=== PATIENT | male | born 1960 | race Caucasian/White ===

== ENCOUNTER 2016-04-16 07:25 | Inpatient (IN) ==
[2016-04-12 13:57] LABS: Basophils # (Auto) 0 K/mcL (0.0-0.3); Basophils % (Auto) 0.9 % (0.0-2.0); Eosinophils # (Auto) 0.2 K/mcL (0.0-0.7); Eosinophils % (Auto) 3.7 % (0.0-7.0); Granulocytes % (Auto) 59.2 % (38.0-78.0); Lymphocytes # (Auto) 1.6 K/mcL (1.5-4.8); Lymphocytes % (Auto) 29.8 % (15.5-49.0); Mean Cell Volume 94.3 fL (80.0-100.0); Mean Corpuscular HGB Conc 32.9 g/dL (31.0-36.0); Monocytes # (Auto) 0.3 K/mcL (0.1-0.9); Monocytes % (Auto) 6.4 % (1.0-9.0); Platelet Count 211 K/mcL (140-440); RBC 4.39 M/mcL (4.50-5.90); Red Cell Distribution Width 14.7 % (11.5-14.5)
[2016-04-12 14:07] LABS: Blood Urea Nitrogen 19 mg/dl (6-20)
[2016-04-12 15:47] LABS: Appearance,Urine CLEAR; Bilirubin,Urine NEG (NEG); Color,Urine YELLOW; Glucose,Urine (UA) NEGATIVE (NEG); Leukocyte Esterase,Urine NEG /uL (NEG); Nitrate,Urine NEG (NEG); Protein,Urine NEG (NEG); Urine Blood NEG mg/dL (<0.03); Urobilinogen,Urine NEG (NEG)
[~2016-04-16 07:25] MED LIST: ACETAMINOPHEN 500 MG TABLET PO SCH; CELECOXIB 200 MG CAPSULE PO SCH; PREGABALIN 150 MG CAPSULE PO SCH; ceFAZolin 1 GM VIAL IV SCH; oxyCODONE 10 MG TAB.ER.12H PO SCH
[2016-04-16] MEDS ORDERED: GLYCOPYRROLATE 0.2 MG/ML VIAL IV ONE (10:20)
[2016-04-16] MEDS ORDERED: ePHEDrine 50 MG/ML AMPUL IV ONE (10:20)
[2016-04-16] MEDS ORDERED: MIDAZOLAM 5 MG/5 ML VIAL IV ONE (10:20)
[2016-04-16] MEDS ORDERED: SUCCINYLCHOLINE 20 MG/ML ML IV ONE (10:20)
[2016-04-16] MEDS ORDERED: LIDOCAINE HCL/PF 100 MG/5 ML SYRINGE IV ONE (10:20)
[2016-04-16] MEDS ORDERED: DEXAMETHASONE 10 MG/ML VIAL IV ONE (10:20)
[2016-04-16] MEDS ORDERED: ROCURONIUM 10 MG/ML ML IV ONE (10:20)
[2016-04-16] MEDS ORDERED: PROPOFOL 200 MG/20 ML VIAL IV ONE (10:20)
[2016-04-16] MEDS ORDERED: PHENYLEPHRINE 10 MG/ML VIAL IV ONE (10:20)
[2016-04-16] MEDS ORDERED: TRANEXAMIC ACID 1,000 MG/10 ML VIAL IV ONE (10:20)
[2016-04-16] MEDS ORDERED: GENTAMICIN SULFATE 800 MG/20 ML VIAL IR ONE (10:46)
[2016-04-16] MEDS ORDERED: FLUMAZENIL 0.1 MG/ML ML IV PRN (11:48)
[2016-04-16] MEDS ORDERED: NALOXONE HCL 0.4 MG/ML VIAL IV PRN (11:48)
[2016-04-16] MEDS ORDERED: MEPERIDINE 25 MG/ML SYRINGE IV PRN (11:48)
[2016-04-16] MEDS ORDERED: diphenhydrAMINE 50 MG/ML VIAL IV PRN (11:48)
[2016-04-16] MEDS ORDERED: BENZOCAINE/MENTHOL 1 LOZENGE PO PRN ×2 (11:48→12:32)
[2016-04-16] MEDS ORDERED: IPRATROPIUM/ALBUTEROL 3 ML AMPUL.NEB NEB PRN (11:48)
[2016-04-16] MEDS ORDERED: HYDROmorphone 2 MG/ML SYRINGE IV PRN ×2 (11:48→13:50)
[2016-04-16] MEDS ORDERED: ePHEDrine 50 MG/ML AMPUL IV PRN (11:48)
[2016-04-16] MEDS ORDERED: METHOCARBAMOL 1,000 MG/10 ML VIAL IV PRN (11:48)
[2016-04-16] MEDS ORDERED: LACTATED RINGERS 250 ML IV PRN (11:48)
[2016-04-16] MEDS ORDERED: LACTATED RINGERS 1,000 ML IV SCH (12:00)
[2016-04-16] MEDS ORDERED: FLEETS ADULT ENEMA PR PRN (12:32)
[2016-04-16] MEDS ORDERED: ONDANSETRON 4 MG/2 ML VIAL IV PRN (12:32)
[2016-04-16] MEDS ORDERED: TRANEXAMIC ACID 1,000 MG/10 ML VIAL IV SCH (12:32)
[2016-04-16] MEDS ORDERED: POLYETHYLENE GLYCOL 3350 17 GM PACKET PO PRN (12:32)
[2016-04-16] MEDS ORDERED: BISACODYL 10 MG SUPP.RECT PR PRN (12:32)
[2016-04-16] MEDS ORDERED: MAGNESIUM HYDROXIDE 30 ML ORAL.SUSP PO PRN (12:32)
--- NOTE | 2016-04-16 12:32 | Brief Operative Note ---
Date of procedure: 04/16/16 Pre-op diagnosis: Left hip loose cup Post-op diagnosis: same Procedure: Left hip revision of cup Grafts/Implants: Yes Anesthesia: GETA Findings: loose cup with minimal ingrowth top 50 percent Complications: none Complications Description: 04/16/16 12:31 none Surgeon: Maynor Sharma Pres[employer] Teacher Assistant: Dhiraj Rogers Estimated blood loss (cc): 100 Specimens Removed/Pathology: none sent Condition: stable Disposition: PACU
[2016-04-16] MEDS: fentaNYL 100 MCG/2 ML VIAL IV PRN ×4 (13:20→13:35)
[2016-04-16] MEDS ORDERED: ACETAMINOPHEN 325 MG TABLET PO PRN (13:50)
[2016-04-16] MEDS: 0.45 % SODIUM CHLORIDE 1,000 ML IV SCH (14:12)
[2016-04-16] MEDS: 0.9 % SODIUM CHLORIDE 10 ML SYRINGE IV SCH ×2 (14:12→22:17)
[2016-04-16] MEDS: CYCLOBENZAPRINE 10 MG TABLET PO SCH ×2 (14:15→21:01)
[2016-04-16] MEDS: KETOROLAC 15 MG/ML VIAL IV PRN ×2 (14:30→23:32)
--- NOTE | 2016-04-16 14:33 | XRay Report ---
HISTORY: Reason for Exam:Post-Op Total Hip FINDINGS: The patient has bilateral total hip prosthesis. The left hip prosthesis has been revised since the recent x-ray done on 04/04/15. The prosthetic femoral head has been replaced. The new prosthetic femoral head is well centered within the acetabular cup. There is no evidence of fracture. There is no reabsorption of bone around the hardware. IMPRESSION: Well-positioned left hip prosthesis which has been revised. Interpreted and Authenticated by: Mian Austin 04/16/16
[2016-04-16] MEDS: NICOTINE 21 MG PATCH TOPICAL SCH (16:00)
[2016-04-16] MEDS: HYDROcodone/APAP 10/325MG TABLET PO PRN ×2 (16:31→21:02)
[2016-04-16] MEDS: ceFAZolin 1 GM VIAL IV SCH (18:53)
[2016-04-16] MEDS: clonazePAM 0.5 MG TABLET PO PRN (19:57)
[2016-04-16] MEDS ORDERED: SENNOSIDES 1 TABLET PO SCH (21:00)
[2016-04-16] MEDS: QUEtiapine 100 MG TABLET PO PRN ×2 (21:00→23:33)
[2016-04-16] MEDS ORDERED: TEMAZEPAM 15 MG CAPSULE PO PRN (21:00)
[2016-04-16] MEDS ORDERED: PRAZOSIN 1 MG CAPSULE PO SCH (21:00)
[2016-04-16] MEDS: ASPIRIN 325 MG ENTERIC COATED TABLET PO SCH (21:01)
[2016-04-16] MEDS: DOCUSATE SODIUM 100 MG CAPSULE PO SCH (21:01)
[2016-04-16] MEDS: oxyCODONE 10 MG TAB.ER.12H PO SCH (21:01)
[2016-04-17] MEDS: HYDROcodone/APAP 10/325MG TABLET PO PRN ×2 (01:01→05:18)
[2016-04-17] MEDS: 0.45 % SODIUM CHLORIDE 1,000 ML IV SCH ×3 (01:02→11:43)
[2016-04-17] MEDS: ceFAZolin 1 GM VIAL IV SCH (02:57)
[2016-04-17] MEDS: 0.9 % SODIUM CHLORIDE 10 ML SYRINGE IV SCH (06:20)
--- NOTE | 2016-04-17 07:50 | Orthopedic Progress Note ---
Subjective Patient information: Note initiated : 04/17/16 at 7:49 am Service Date, if different from initiated Date: [] Patient: Bunny Doran 55 y/o M admitted on 04/16/16 for Left Total Hip Arthroplasty Revision - Femoral and. Chief Complaint: [Pt is stable this morning on post operative day 1 without any significant concerns or complaints. Patients vital signs have remained stable. Patients dressing is dry and exhibits a grossly intact neurovascular and neuromotor exam. Patients 10 point ROS is otherwise negative. ] Objective Vital signs: Vital Signs Temp Pulse Resp BP Pulse Ox 04/17/16 06:00 97 04/17/16 04:00 97.3 F L 71 14 103/65 99 04/17/16 01:44 97 04/16/16 23:11 97.9 F 107 H 14 101/62 99 04/16/16 23:10 99 04/16/16 22:00 99 04/16/16 20:00 98.2 F 103 H 14 112/75 99 04/16/16 18:00 98 04/16/16 16:35 97.7 F 91 H 16 119/76 100 04/16/16 16:00 100 04/16/16 15:35 88 16 127/78 98 04/16/16 15:05 92 H 16 129/80 89 L 04/16/16 14:35 77 16 123/88 98 04/16/16 14:33 100 04/16/16 14:20 64 14 130/83 98 04/16/16 14:05 76 14 122/82 100 04/16/16 13:50 97.3 F L 76 14 131/87 100 04/16/16 13:37 64 16 133/89 100 04/16/16 13:15 62 16 133/89 100 04/16/16 13:00 72 16 136/79 100 04/16/16 12:42 97.1 F L 66 12 114/76 100 Intake and Output 04/16/16 04/17/16 04/17/16 21:59 05:59 13:59 Intake Total 780 / 780 2100 / 2100 Output Total 350 / 350 250 / 250 Balance 780 / 780 1750 / 1750 -250 / -250 Intake: IV 1000 / 1000 Sodium Chloride 0.45% 1, 1000 / 1000 000 ml @ 100 mls/hr IV . Q10H [facility] Rx#:[id number] Oral 780 / 780 1100 / 1100 Output: Void Amount 350 / 350 250 / 250 Straight Cath #2 350 / 350 Other: Meal Dinner Percent of Meal Consumed 100% Feeding Ability Independent Weight 192 lb Intake & Output: Intake & Output 04/16/16 04/17/16 04/17/16 21:59 05:59 13:59 Intake Total 780 / 780 2100 / 2100 Output Total 350 / 350 250 / 250 Balance 780 / 780 1750 / 1750 -250 / -250 Weight 192 lb Intake: IV 1000 / 1000 Sodium Chloride 0.45% 1, 1000 / 1000 000 ml @ 100 mls/hr IV . Q10H [facility] Rx#:[id number] Oral 780 / 780 1100 / 1100 Output: Void Amount 350 / 350 250 / 250 Straight Cath #2 350 / 350 Other: Meal Dinner Percent of Meal Consumed 100% Feeding Ability Independent Incision: Yes healing Incision clean and dry: Yes Dressing: Yes clean, Yes dry Neurological exam IM: Yes motor sensory intact, Yes neurovascular intact Extremities exam IM: Yes Foot pink and warm, Yes neurovascular intact - Labs CBC & BMP: 04/17/16 05:00 04/12/16 11:24 Labs: Orthopedic Labs 04/16/16 07:45 PT 12.9 INR 1.0 04/17/16 04/12/16 05:00 11:25 Hgb 13.6 Hct 29.5 L 41.4 Assessment and Plan (1) Hx of total hip arthroplasty Patient has been educated regarding wound care and dressings, follow up recommendations, and medication use. We will f/u with the patient within 2-3 weeks for wound check. Status: Acute
--- NOTE | 2016-04-17 07:52 | Discharge Summary ---
Ortho Discharge - [facility] - Patient Instructions Diet: Regular Diet Activity: activity as tolerated, weight bearing as tolerated Total Hip Protocol: Follow activity instructions as provided by Physical Therapy. Dressing Care: May shower in 2 days, Aquacel Ag - leave on for 5 days Additional Instructions: [facility] [phone] APPOINTMENT: - Problem Maintenance (1) Hx of total hip arthroplasty Status: Acute - Follow Up Plan Follow Up Appointments: Maynor Sharma MD [Physician] - 05/01/16 1:00 pm Disposition: Home, Self-Care Prognosis: Good Rehab Potential: Good I certify that the patient requires SNF services: No Overall status at discharge: patient is progressing back to baseline - Orders For Discharge Prescriptions: Aspirin [Ecotrin] 325 mg PO BID #60 tab.ec Docusate Sodium [Colace] 100 mg PO BID #60 capsule HYDROcodone/APAP 10/325MG [[place] 10/325Mg] 1 - 2 tab PO Q4HP PRN #75 tablet PRN Reason: Pain Additional Discharge Orders: Physical Therapy at Discharge - [facility] Location: Determined By Patient Toilet Riser Discharge Order Location: Determined By Patient Walker Location: Determined By Patient
[2016-04-17] MEDS ORDERED: predniSONE 10 MG TABLET PO SCH (08:00)
[2016-04-17] MEDS: clonazePAM 0.5 MG TABLET PO PRN (08:42)
[2016-04-17] MEDS: oxyCODONE 10 MG TAB.ER.12H PO SCH (08:42)
[2016-04-17] MEDS: ASPIRIN 325 MG ENTERIC COATED TABLET PO SCH (08:42)
[2016-04-17] MEDS: CYCLOBENZAPRINE 10 MG TABLET PO SCH (08:42)
[2016-04-17] MEDS: DOCUSATE SODIUM 100 MG CAPSULE PO SCH (08:42)
[2016-04-17] MEDS: NICOTINE 21 MG PATCH TOPICAL SCH (12:22)
--- NOTE | 2016-05-04 12:30 | Operative Note ---
DATE OF OPERATION: 04/16/2016 PREOPERATIVE DIAGNOSIS: Left hip loose femoral cup. POSTOPERATIVE DIAGNOSIS: Left hip loose femoral cup. PROCEDURE: Left hip cup revision. SURGEON: Maynor Sharma MD. LICENSE ISSUER: Dhiraj Rogers PA-C. ANESTHESIA: General LMA anesthesia. COMPLICATIONS: None. ESTIMATED BLOOD LOSS: About 100 mL. DESCRIPTION OF PROCEDURE: The patient was brought to the operating room and put to sleep with general LMA anesthesia. Once asleep, the patient had the left hip sterilely prepped and draped in the usual sterile fashion after confirming the operative site. Preop antibiotics, tranexamic acid given. We made an incision through the prior scar, dissected down through the skin and through the fascial layer of the gluteus valencia, identified the posterior joint and retractors were placed. We then dislocated the hip and removed the ball and made space in the superior anterior pouch for the femur. This was subluxed anteriorly. We then removed the acetabular cup using flexible osteotomes. Once this was removed, we reamed and placed a new cup with screws. These screws were well fixed. We then placed a dual mobility liner and then checked the femur. The femur seemed to be in excellent condition without motion. The actual cup had minimal ingrowth in the 50% superior portion of the cup indicating it could be loose and confirming the diagnosis. After thoroughly irrigating, reducing the hip and checking stability up to 90 degrees, we irrigated. Leg lengths were checked. X-ray taken confirmed position to be excellent. We closed the fascial layer with #2 FiberWire and a double-armed Maxon stitch. We closed the skin with 0 Vicryl and then subcutaneous 2-0 Vicryl and adhesive closure. The patient tolerated this well. Sterile bandage was applied. RBH:frank Job ID: [id number] Doc ID: [id number] Maynor Sharma MD
== END 2016-04-17 13:45 | disposition home or self-care (01) | DRG 468 ==
LOC: MEDSUR 07:25
PROVIDERS: ADMIT Orthopaedic Surgery; ATTEND Orthopaedic Surgery

== ENCOUNTER 2022-03-28 02:26 | Observation (INO) ==
[2022-03-28] MEDS ORDERED: 0.9 % SODIUM CHLORIDE 1,000 ML IV ONE (02:35)
--- NOTE | 2022-03-28 02:38 | Emergency Department Note ---
Lower Extremity Injury HPI General Chief Complaint: Extremity Injury, Lower Stated Complaint: right leg injury Time Seen by Provider: 03/28/22 02:30 Source: patient Mode of arrival: ambulatory Limitations: no limitations History of Present Illness HPI Narrative: Narrative: Patient presents to ED via EMS with complaints of right leg pain. 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 He states that he hurt his leg. EMS administered IV fentanyl and ketamine in transport. Patient rates his pain 10/10. He denies head trauma, loss of consciousness, loss of sensation lower extremity, back pain, bowel bladder incontinence. Patient denies any other alleviating or aggravating factors. Related Data Home Medications Medication Instructions Recorded Confirmed doxycycline hyclate 100 mg capsule 1 cap PO BID 03/12/21 03/06/22 metoprolol succinate 25 mg 1 tab PO QPM 03/12/21 03/06/22 tablet,extended release 24 hr hydrocodone 5 mg-acetaminophen 325 1 tab PO TID PRN 01/15/22 03/06/22 mg tablet Previous Rx's Medication Instructions Recorded aspirin 81 mg tablet,delayed 81 mg PO BID #60 tabs 03/13/21 release (Ecotrin Low Strength) nicotine 21 mg/24 hr daily 1 patch transdermal Q24H #31 ea 03/14/21 transdermal patch (Nicoderm CQ) lamotrigine 100 mg tablet 100 mg PO QHS #30 tabs 12/07/21 pregabalin 150 mg capsule 150 mg PO BID 30 days #60 caps 12/07/21 pregabalin 300 mg capsule 300 mg PO QHS #30 caps 12/07/21 escitalopram oxalate 20 mg tablet 10 mg PO QHS 30 days #15 tabs 01/15/22 prazosin 5 mg capsule 5 mg PO QHS #90 caps 01/15/22 hydroxyzine HCl 25 mg tablet See Rx Instructions .Route 03/06/22 .COMPLEX #90 tabs lamotrigine 200 mg tablet 200 mg PO BID #60 tabs 03/06/22 Allergies Allergy/AdvReac Type Severity Reaction Status Date / Time dihydroergotamine AdvReac Mild Cramping Verified 03/28/22 02:32 of the Muscles ondansetron AdvReac Mild Cramping Verified 03/28/22 02:32 [From Zofran (as of the hydrochloride)] Muscles Paroxetine [From Paxil] AdvReac Mild Migraine Verified 03/28/22 02:32 promethazine [From Phenergan] AdvReac Mild Cramping Verified 03/28/22 02:32 of the Muscles Review of Systems ROS ROS Narrative: Narrative: All systems ED: reviewed and negative except as stated. 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) Migraine (Chronic) COLD (chronic obstructive lung disease) (Chronic) Bolivar's esophagus (Chronic) Torsion of appendix epididymis (Chronic) Knee pain, left (Chronic) Cervical disc prolapse with radiculopathy (Chronic) Avascular necrosis of bones of both hips (Chronic) Tear of meniscus of knee (Chronic) History of attempted suicide (Chronic) Chronic insomnia (Chronic) History of recent neurosurgical procedure (Chronic ~11/24/14) Memory loss (Chronic) Tobacco dependence syndrome (Chronic) PTSD (post-traumatic stress disorder) (Chronic) Fall (Acute) Contusion of left shoulder (Acute) Contusion of rib on left side (Acute) Cervical radiculopathy (Acute) Medication management (Acute) History of methamphetamine abuse (Chronic) Injury of thoracic aorta (Acute) Hip pain, left (Acute) Chest pain (Acute) Septic hip (Acute) Acute hip pain (Acute) Septic arthritis of hip (Acute) Septic arthritis of hip (Acute) Seizure (Acute) Dislocation of hip, left, closed (Acute) Dislocation of left hip (Acute) Dislocation of left hip (Acute) Postprocedural hypotension (Acute) Dislocation, hip closed (Acute) 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 (Acute) Dislocation of left hip (Acute) Insomnia (Chronic) Dislocation of left hip (Acute) Dislocation of hip, left, closed (Acute) Hip pain, left (Acute) Dislocation of left hip (Acute) Dislocation, hip (Acute) Anterior dislocation of left hip (Acute) Acute hip pain (Acute) Bursitis of hip, right (Acute) Closed right tibial fracture (Acute) Closed right fibular fracture (Acute) Medical History Anxiety disorder Avascular necrosis of bones of both hips Bolivar's esophagus Cannabis abuse Cerebral autosomal dominant arteriopathy with subcortical infarcts and leukoencephalopathy (~05/01/18) Cervical disc prolapse with radiculopathy Chronic insomnia COLD (chronic obstructive lung disease) Generalized anxiety disorder History of attempted suicide History of recent neurosurgical procedure (~11/24/14) Level 3 Cervical Fusion Knee pain, left Major depression Memory loss Migraine Recurrent major depression Severe recurrent major depression Tear of meniscus of knee Tobacco dependence syndrome Torsion of appendix epididymis Surgical History History of shoulder surgery Bilateral Hx of total hip arthroplasty (~01/31/15) Right Hx of total hip arthroplasty (~04/05/15) Left Status post debridement of bone spur Family History Mother , 54 Malignant tumor of kidney Father , 51 Malignant neoplastic disease Cerebral AD arteriopathy w infarcts and leukoencephalopathy (CADASIL) Sister Prediabetes Half Sister Social History Smoking Status: Current every day smoker Alcohol Intake Frequency: does not drink Substance Use: marijuana Exam Narrative Narrative: Narrative: General Limitations: no limitations General appearance: Present grimacing and in distress Head Head: Present atraumatic and normocephalic Eye Eye: Present PERRL and EOMI ENT ENT: Present normal oropharynx and mucous membranes moist Neck Neck: Present normal inspection; Absent meningismus Chest Chest: Present normal inspection; Absent tenderness Respiratory Respiratory: Present normal lung sounds bilaterally; Absent respiratory distress Cardiovascular Cardiovascular: Present regular rate and normal rhythm Adbominal Abdominal: Present soft; Absent tenderness Extremities Extremities: Present tenderness and normal capillary refill Expanded Lower Extremity Knee: Present normal inspection; Absent tenderness Lower leg: Present tenderness and deformity Ankle: Present tenderness Back Back: Absent L-S tenderness Neurological Neurological: Present alert and oriented X3 Psychiatric Psychiatric: Present serious and polite Skin Skin: Present warm (WNL) and intact Course Course Course Narrative: UA did for left lower leg deformity secondary to a fall due to a pseudoseizure. X-rays were obtained of the right lower extremity and showed that patient had displaced right tib-fib fractures that were closed. Case was discussed with orthopedic surgery who recommended fracture reduction, splint admission to hospitalist for surgical correction in the morning. Consent was obtained t imeout performed and both fractures were reduced post reduction x-rays show an acceptable reduction. Patient was given IV fentanyl. EKG was obtained for preop and was unremarkable. Chest x-ray obtained for preop was unremarkable. Labs were obtained were unremarkable. Case was discussed with hospitalist who has refused to admit patient to their service as he feels as a primary orthopedic admission. The orthopedic surgeon has agreed to admit the patient to his service. Consultations Consultation #1: Case discussed with on-call orthopedic surgeon, Dr. Michael, who recommends that the fracture be reduced, splinted and patient admitted to the hospitalist service for surgical correction later today. Time: 02:54 Consultation #2: Is discussed with hospitalist, Dr. Max Welch, who has refused to accept the patient as he feels that this is not a primary medical issue and that she will be directly admitted by the orthopedic surgeon with hospitalist consult Time: 03:48 Vital Signs Vital signs: Vital Signs Temperature 96.6 F L 03/28/22 02:27 Respiratory Rate 18 03/28/22 02:27 Blood Pressure 134/119 03/28/22 02:27 Pulse Oximetry (%) 100 03/28/22 02:27 Oxygen Delivery Method Room Air 03/28/22 02:27 Temperature 96.6 F L 03/28/22 02:27 Pulse Rate 52 L 03/28/22 04:00 Respiratory Rate 15 03/28/22 04:00 Blood Pressure 107/61 03/28/22 03:56 Pulse Oximetry (%) 97 03/28/22 04:00 Oxygen Delivery Method Room Air 03/28/22 02:27 Procedures Orthopedic Fracture Reduction Fracture #1: Consent Obtained: verbal consent and written consent Time Out Performed: Yes Side: right Fracture Reduction Location: fibula Analgesia: procedural sedation Technique: direct manipulation and traction/counter-traction Post Reduction X-rays Demonstrate: acceptable reduction Post-reduction neuro exam: intact Post-reduction vascular exam: intact Splint Applied: Yes Patient Tolerated Procedure: well Fracture #2: Consent Obtained: verbal consent and written consent Time Out Performed: Yes Side: right Fracture Reduction Location: tibia Analgesia: procedural sedation Technique: direct manipulation and traction/counter-traction Post Reduction X-rays Demonstrate: acceptable reduction Post-reduction neuro exam: intact Post-reduction vascular exam: intact Splint Applied: Yes Patient Tolerated Procedure: well Procedural Sedation Indication: fracture/dislocation reduction ASA Class: III Time of Last PO Intake: 23:00 Preparation: lunchroom monitor applied, pulse oximeter, capnometry used, supplemental O2 applied, suction/airway equipment at bedside and IV secured Fentanyl: IV Fentanyl Dose: 50 IV Propofol Dose (mgs): 100 Patient Tolerated Procedure: well Complications: none MDM MDM Narrative Medical decision making narrative: Narrative: Differential Diagnosis Differential Diagnosis: Tib-fib fracture, ankle fracture, fall Medical Records Medical records reviewed: Yes I reviewed the patient's medical records. Lab Data Lab results reviewed: Yes I reviewed the patient's lab results. 03/28/22 03:06 Labs: Lab Results 03/28/22 03/28/22 03/28/22 Range/Units 03:06 03:06 03:17 WBC 5.5 (4.5-11.0) K/mcL RBC 4.51 L (4.63-6.08) M/mcL Hgb 11.9 L (13.7-17.5) g/dL Hct 37.5 L (40.1-51.0) % POC Hct 37.0 L (41-55) MCV 83.1 (80.0-100.0) fL MCH 26.4 (26.0-34.0) pg MCHC 31.7 (31.0-36.0) g/dL RDW 17.2 H (11.5-14.5) % Plt Count 228 (140-440) K/mcL MPV 10.5 (8.8-12.5) fL Immature Gran % (Auto) 0.9 H (0.0-0.5) % Neut % (Auto) 76.9 (38.0-78.0) % Lymph % (Auto) 11.2 L (15.5-49.0) % Swift % (Auto) 6.6 (1.0-12.0) % Eos % (Auto) 3.7 (0.0-7.0) % Baso % (Auto) 0.7 (0.0-2.0) % Lymph # (Auto) 0.61 L (1.50-4.80) K/mcL Swift # (Auto) 0.36 (0.10-0.90) K/mcL Eos # (Auto) 0.20 (0.00-0.70) K/mcL Baso # (Auto) 0.04 (0.00-0.30) K/mcL Immature Gran # 0.05 (0.00-0.05) K/mcl Absolute Neutrophils 4.21 (1.80-8.00) K/mcL POC Sodium 139 (133-145) POC Potassium 4.2 (3.3-5.1) POC Chloride 103 (96-108) POC Total CO2 26.0 (22-30) POC BUN 28 H (6-20) POC Creatinine 1.1 (0.6-1.2) POC Glucose 101 (70-105) POC WB Ioniz Calcium 1.10 L (1.16-1.32) Ethyl Alcohol mg/dL < 10.0 mg/dL Ethyl Alcohol g/dL < 0.010 (<0.010) gm/dL Radiology Data Radiology results reviewed: Yes I reviewed the patient's radiology results. Radiology results narrative: Chest x-ray obtained with image reviewed myself, no acute cardiopulmonary finding X-ray of the right tib-fib obtained with image reviewed myself which shows d isplaced tib-fib fractures Post reduction x-rays of the right tib-fib obtained with image reviewed myself which show good reduction EKG Data EKG #1: EKG attestation: Yes I reviewed and interpreted this EKG. EKG shows normal: sinus rhythm Rate: bradycardia Rhythm: NSR Crawley/QRS: normal Heart block present: None ST segment elevation in: None ST segment depression in: None QTc: normal QRS morphology: Present normal Interpretation: no acute changes Core Measures AMI Core Measures Followed: Yes Discharge Plan Patient/Caregiver Discharge Instructions Pt seen by SHOWER ATTENDANT/PA only: No Clinical Impression: Closed right tibial fracture Qualifiers: Encounter type: initial encounter Tibia location: distal Fracture morphology: unspecified fracture morphology Qualified Code(s): S82.301A - Unspecified fracture of lower end of right tibia, initial encounter for closed fracture Closed right fibular fracture Qualifiers: Encounter type: initial encounter Fibula location: distal Fracture morphology: unspecified fracture morphology Qualified Code(s): S82.831A - Other fracture of upper and lower end of right fibula, initial encounter for closed fracture Patient Disposition: Xfer As Outpt/Obs ([facility]) Condition: Good Follow up with: [facility] [place] [Primary Care Provider] - Prescriptions: No Action hydrocodone-acetaminophen 5-325 mg tablet 1 tab PO TID PRN prazosin 5 mg capsule 5 mg PO QHS Qty: 90 3RF escitalopram oxalate 20 mg tablet 10 mg PO QHS 30 Days Qty: 15 3RF lamotrigine 100 mg tablet 100 mg PO QHS Qty: 30 2RF pregabalin 150 mg capsule 150 mg PO BID 30 Days Qty: 60 3RF Rx Instructions: Also taking 300mg capsule nightly (total dose/24HRS = 600mg) pregabalin 300 mg capsule 300 mg PO QHS Qty: 30 2RF Rx Instructions: Also taking 150mg capsule BID (total dose/24HRS = 600mg) lamotrigine 200 mg tablet 200 mg PO BID Qty: 60 2RF hydroxyzine HCl 25 mg tablet See Rx Instructions .ROUTE .COMPLEX Qty: 90 2RF Rx Instructions: TAKE ONE TAB BY MOUTH IN AM + TWO TABS BY MOUTH AT BEDTIME doxycycline hyclate 100 mg capsule 1 cap PO BID metoprolol succinate 25 mg tablet extended release 24 hr 1 tab PO QPM aspirin [Ecotrin Low Strength] 81 mg tablet,delayed release (DR/EC) 81 mg PO BID Qty: 60 0RF nicotine [Nicoderm CQ] 21 mg/24 hr Patch 24 Hour 1 patch TRANSDERMAL Q24H Qty: 31 0RF
[2022-03-28] MEDS ORDERED: fentaNYL 100 MCG/2 ML VIAL IV ONE (02:57)
[2022-03-28] MEDS ORDERED: PROPOFOL 200 MG/20 ML VIAL IV ONE ×2 (02:57→13:14)
--- NOTE | 2022-03-28 03:10 | XRay Report ---
CLINICAL INFORMATION: Trauma COMPARISON: None FINDINGS: Comminuted spiral fractures of the distal tibia diaphysis shows 30 degrees of posterior and medial angulation of the distal fragment with minimal displacement. An adjacent spiral fracture distal fibular diaphysis also shows 30 degrees posterior and medial displacement of the distal fragment. The tibiofemoral, patellofemoral, ankle mortise and talocalcaneal joint spaces are normal. Diffuse soft tissue swelling noted. IMPRESSION: Spiral angulated acute fractures of the distal tibia and fibular diaphysis Interpreted and Authenticated by: Aaron Robles 03/28/22
[2022-03-28 03:22] LABS: POC Calcium, Ionized 1.1 (1.16-1.32); POC Creatinine 1.1 (0.6-1.2); POC Potassium 4.2 (3.3-5.1)
--- NOTE | 2022-03-28 03:25 | XRay Report ---
CLINICAL INFORMATION: Preop COMPARISON: 03/14/2021. TECHNIQUE: Portable FINDINGS: Sternotomy changes noted. PICC line has been removed since previous exam The heart size, mediastinum and pulmonary vessels are unremarkable. The lungs are clear. There are no effusions. The bones and soft tissues are within normal limits. IMPRESSION: Normal chest. Interpreted and Authenticated by: Aaron Robles 03/28/22
[2022-03-28 03:51] LABS: Basophils # (Auto) 0.04 K/mcL (0.00-0.30); Basophils % (Auto) 0.7 % (0.0-2.0); Eosinophils % (Auto) 3.7 % (0.0-7.0); Hematocrit 37.5 % (40.1-51.0); Hemoglobin 11.9 g/dL (13.7-17.5); Lymphocytes # (Auto) 0.61 K/mcL (1.50-4.80); Lymphocytes % (Auto) 11.2 % (15.5-49.0); Mean Cell Volume 83.1 fL (80.0-100.0); Mean Corpuscular HGB Conc 31.7 g/dL (31.0-36.0); Mean Platelet Volume 10.5 fL (8.8-12.5); Monocytes # (Auto) 0.36 K/mcL (0.10-0.90); Monocytes % (Auto) 6.6 % (1.0-12.0); Neutrophils % (Auto) 76.9 % (38.0-78.0); Platelet Count 228 K/mcL (140-440); RBC 4.51 M/mcL (4.63-6.08); Red Cell Distribution Width 17.2 % (11.5-14.5); WBC 5.5 K/mcL (4.5-11.0)
[2022-03-28] MEDS ORDERED: PROMETHAZINE 25 MG/ML VIAL IM PRN (03:57)
[2022-03-28] MEDS ORDERED: morphine 2 MG/ML VIAL IV PRN (03:57)
[2022-03-28] MEDS ORDERED: ONDANSETRON 4 MG/2 ML VIAL IV PRN ×2 (03:57→16:51)
[2022-03-28] MEDS ORDERED: NALOXONE HCL 0.4 MG/ML VIAL IV PRN ×2 (03:57→16:17)
[2022-03-28] MEDS ORDERED: HYDROmorphone 0.5 MG/0.5 ML SYRINGE IV PRN ×2 (03:57→16:17)
[2022-03-28] MEDS ORDERED: 0.9 % SODIUM CHLORIDE 1,000 ML IV SCH (04:00)
[2022-03-28 04:05] LABS: Alcohol, Blood < 10.0 mg/dL; Alcohol,Blood < 0.010 gm/dL (<0.010)
[2022-03-28] MEDS ORDERED: ceFAZolin 2 GM in DEXTROSE 5% IN WATER 50 ML IV ONE (04:39)
[2022-03-28] MEDS ORDERED: METHOCARBAMOL 1,000 MG/10 ML VIAL ONE (05:02)
--- NOTE | 2022-03-28 05:03 | XRay Report ---
CLINICAL INFORMATION: Closed reduction spiral fracture distal tibia and fibular diaphysis COMPARISON: Prereduction films 03/28/2022 FINDINGS: Spiral fracture of the distal tibia shows improved alignment. There is still approximately 1 cm medial and posterior displacement of the proximal fragment. No angulation deformity. Spiral fracture of the distal fibular diaphysis is in near-anatomic alignment. Ankle mortise and talar calcaneal joints are normal. IMPRESSION:: Closed reduction improved alignment spiral fracture distal fibula and tibia diaphysis Interpreted and Authenticated by: Aaron Robles 03/28/22
[2022-03-28] MEDS: DEXTROSE 5%-1/2NS 1,000 ML IV SCH ×2 (05:05→18:11)
[2022-03-28] MEDS: METHOCARBAMOL 1,000 MG/10 ML VIAL IV PRN ×2 (05:10→11:04)
[2022-03-28] MEDS: 0.9 % SODIUM CHLORIDE 10 ML SYRINGE IV SCH ×2 (06:04→18:55)
[2022-03-28] MEDS ORDERED: ceFAZolin 2 GM in DEXTROSE 5% IN WATER 50 ML IV SCH (06:30)
--- NOTE | 2022-03-28 06:34 | Cat Scan Report ---
CLINICAL INFORMATION: Follow-up closed reduction spiral fracture distal tibia and fibula diaphysis COMPARISON: None. TECHNIQUE: 0.625 mm helical slices were obtained from the distal femoral diaphysis through the entire right calf foot and ankle.. Following reconstruction, 2.5 mm sagittal, coronal and axial reformations , with and without disc space angling, were processedThe exam was performed using radiation dose optimization techniques including, but not limited to, automated exposure control, adjustment of the mA and/or kV according to patient size and use of iterative reconstruction technique. FINDINGS: Spiral butterfly type fracture of the distal tibial diaphysis shows improved alignment. The distal fragment is still displaced 8 mm laterally. There is very slight posterior angulation of fracture apex less than 5 degrees. Moderately comminuted spiral fracture distal fibular diaphysis shows improved alignment as well. The distal fragment is displaced 11 mm millimeters posteriorly and there is mild bayonet deformity and slight posterior angulation fracture apex. Joint spaces are normal. No other abnormality IMPRESSION: 1. Butterfly fracture the distal tibial diaphysis shows improved alignment with minimal residual displacement and angulation. 2. Moderately comminuted spiral fracture distal fibular diaphysis shows mild bayonet deformity with displacement and minimal angulation. Interpreted and Authenticated by: Aaron Robles 03/28/22
[2022-03-28] MEDS: HYDROmorphone 1 MG/ML SYRINGE IV PRN ×3 (06:44→10:40)
[2022-03-28] MEDS: ACETAMINOPHEN 1,000 MG/100 ML BAG IV SCH ×2 (06:47→18:54)
--- NOTE | 2022-03-28 08:11 | Consultation ---
DATE OF CONSULTATION: 03/28/2022 REASON FOR CONSULTATION: Right distal tib fib fracture. DATE OF CONSULTATION: 03/28/2022. CONSULTING PROVIDER: Dr. Radu Kumar, ER provider [facility]. HISTORY OF PRESENT ILLNESS: The patient is a 61-year-old male who has multiple medical comorbidities. 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 While going to the restroom, he had one of these pseudoseizures and resulted in a fall. Upon awakening, he was unable to bear weight, had deformity and was brought to the Emergency Department for further evaluation and treatment. Upon presentation, he was found to have midshaft tib-fib fracture with comminution. Orthopedics was consulted. On presentation, he only complains of this right leg pain. He has baseline paresthesias in his foot from his neurological disorder. PAST MEDICAL HISTORY: As noted, CADASIL, COPD, severe depression, anxiety, history of open heart surgery in 2020- said aortic replacement (not clear), PTSD, and migraines and reflux. PAST SURGICAL HISTORY: He has had multiple surgeries in the past include left hip arthroplasty with a revision secondary to dislocations, infection to bilateral shoulder arthroscopy procedures, multiple on the right, history of open heart surgery in 2020 in [place] secondary to aortic replacement per patient, this may be aortic valve, but also reports having an infection at the time for a month long hospital stay, he has had right hip replacement as well. He has a cervical spine fusion as well as lumbar spine fusion. MEDICATIONS: 1. Aspirin. 2. Nicotine patch, but not currently wearing. 3. Lamotrigine. 4. Pregabalin. 5. Citalopram. 6. Prazosin. 7. Hydroxyzine. 8. Metoprolol. 9. Doxycycline. SOCIAL HISTORY: Resides locally by himself, is a daily smoker as well as using marijuana. Negative alcohol use and he is disabled from multiple medical comorbidities and his baseline neurological disorder. REVIEW OF SYSTEMS: Other than mentioned above, the 10-point review of systems is negative. PHYSICAL EXAMINATION: General: The patient is alert, oriented, interactive, appropriate. Vital Signs: He is afebrile, temperature 96.6, saturating 98% to 100% on room air. His heart rates in the 50s, blood pressure is 100s/60s. Extremities: Examination of the patient is isolated injury to the right lower extremity, which demonstrates splint in place. Foot is warm and well perfused. He does have an abrasion on the great toe with significant amount of callus throughout. Baseline neuropathy. Foot is perfused. IMAGING: He has plain radiographs, which demonstrate a comminuted midshaft tib-fib fracture on the lateral appears to have a posterior malleolar fracture; however, CT was obtained, which does not demonstrate a posterior malleolus fracture. Comminuted midshaft tibia as well as more distal third fibular fracture. ASSESSMENT AND PLAN: This 61-year-old male has multiple medical comorbidities with a right closed tib-fib fracture. I discussed and reviewed this with him today as well as treatment options. My recommendation is for operative treatment with an intramedullary nail. I discussed what this would entail as well as postoperative recovery process. Given the options, he understands the surgery itself, the benefits and risks and wishes to proceed. Also discuss smoking cessation, which does not seem like he is wanting to do at this time. He does have a bit high risk for wound complications and infection and delayed healing. He understands this. Plan will be for operative fixation of right tib-fib fracture later on today. NIA:[email or web address] Job ID: [id number] Doc ID: [id number] Lara Michael MD [email or web address]
[2022-03-28] MEDS: hydrOXYzine 25 MG TABLET PO SCH ×2 (08:50→21:05)
[2022-03-28] MEDS: lamoTRIgine 100 MG TABLET PO SCH ×2 (08:51→21:04)
[2022-03-28] MEDS ORDERED: PREGABALIN 150 MG CAPSULE PO SCH (09:00)
--- NOTE | 2022-03-28 09:28 | Magnetic Resonance Report ---
CLINICAL INFORMATION: History of seizure and fall COMPARISON: None. TECHNIQUE:Sagittal T1 FLAIR, axial T2 FLAIR propeller, axial diffusion and ADC weighted images were acquired. FINDINGS: The ventricles, sulci, fissures and cisterns are symmetrically enlarged compatible with mild atrophy. Moderate chronic ischemic changes are confluent in the periventricular white matter. There are no regions of restricted diffusion to suggest infarct no hemorrhage mass effect or edema or other acute finding. IMPRESSION: Mild atrophy and moderate chronic ischemic changes in the deep cerebral white matter-more than typically seen in this age group. No evidence of acute infarct, hemorrhage or other acute intracerebral abnormality Interpreted and Authenticated by: Aaron Robles 03/28/22
--- NOTE | 2022-03-28 09:31 | Cat Scan Report ---
CLINICAL INFORMATION: History of migraine seizure. Fall COMPARISON: None. TECHNIQUE: 2.5 mm helical slices were obtained in the skull base to vertex. Following reconstruction, axial reformatted images were reviewed at bone and parenchymal windows. The exam was performed using radiation dose optimization techniques including, but not limited to, automated exposure control, adjustment of the mA and/or kV according to patient size and use of iterative reconstruction technique. FINDINGS: The ventricles, sulci, fissures, and cisterns are symmetrically enlarged compatible with mild atrophy-more than expected for age. No extra-axial fluid collections are identified. Mild patchy chronic ischemic changes, in the deep cerebral white matter, are expected for age. There is no hemorrhage, mass effect, or edema. Bone windows show no osseous abnormality. IMPRESSION: Mild atrophy and chronic ischemic changes in the deep cerebral white-more than expected for age. No acute findings Opacification of two posterior ethmoid air cells compatible with ethmoid sinusitis. Interpreted and Authenticated by: Aaron Robles 03/28/22
[2022-03-28] MEDS ORDERED: SCOPOLAMINE 1 PATCH PATCH TOPICAL PRN (10:01)
[2022-03-28] MEDS ORDERED: IPRATROPIUM/ALBUTEROL 3 ML AMPUL.NEB NEB PRN ×2 (10:01→16:17)
[2022-03-28] MEDS: PREGABALIN 150 MG CAPSULE PO SCH ×2 (11:03→21:05)
[2022-03-28] MEDS: DOXYCYCLINE HYCLATE 100 MG TABLET.ORL PO SCH ×2 (11:04→21:28)
[2022-03-28] MEDS: NICOTINE 21 MG PATCH TOPICAL SCH (11:24)
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
--- NOTE | 2022-03-28 12:05 | EKG ---
[facility] Test Date: 2022-03-28 Pat Name: Bunny Doran Department: ED Room: Gender: Male Power Checker: : 1960 Requested By: Radu Kumar Order Number: [id number] Reading MD: Aaron Austin M.D. Measurements Intervals [place] Rate: 54 P: 59 CA: 166 QRS: 85 QRSD: 101 T: 88 QT: 447 QTc: 424 Interpretive Statements Sinus rhythm Electronically Signed On 03-28-2022 12:04:49 PST by Aaron Austin M.D. /[email or web address]/[email or web address]/[id number]
[2022-03-28] MEDS ORDERED: KETAMINE 50 MG/ML Syringe (ANEST) IV ONE (13:14)
[2022-03-28] MEDS ORDERED: DEXAMETHASONE 10 MG/ML VIAL ONE (13:14)
[2022-03-28] MEDS ORDERED: TRANEXAMIC ACID 1,000 MG/10 ML VIAL ONE (13:14)
[2022-03-28] MEDS ORDERED: ePHEDrine 50 MG/5 ML SYRINGE (ANEST) IV ONE (13:14)
[2022-03-28] MEDS ORDERED: GLYCOPYRROLATE 0.2 MG/ML VIAL IV ONE (13:14)
[2022-03-28] MEDS ORDERED: SUGAMMADEX SODIUM 200 MG/2 ML VIAL IV ONE (13:14)
[2022-03-28] MEDS ORDERED: fentaNYL 250 MCG/5 ML VIAL IV ONE (13:14)
[2022-03-28] MEDS ORDERED: MIDAZOLAM 5 MG/5 ML VIAL ONE (13:14)
[2022-03-28] MEDS ORDERED: ONDANSETRON 4 MG/2 ML VIAL ONE (13:14)
[2022-03-28] MEDS ORDERED: PHENYLephrine 1 MG/10 ML SYRINGE (ANEST) ONE (13:14)
[2022-03-28] MEDS ORDERED: LIDOCAINE HCL/PF 100 MG/5 ML SYRINGE IV ONE (13:14)
[2022-03-28] MEDS ORDERED: MAGNESIUM SULFATE 4 GM/100 ML BAG IV ONE (13:14)
[2022-03-28] MEDS ORDERED: ROCURONIUM 10 MG/ML ML IV ONE (13:14)
[2022-03-28 13:17] LABS: Amphetamine Screen,Urine None detected; Barbiturate Screen,Urine None detected; Benzodiazepines Screen,Urine None detected; Cannabinoid Screen,Urine Suspect Positive; Cocaine Screen,Urine None detected; Opiate Screen,Urine None detected; Oxycodone, Urine Screen None detected; Phencyclidine Screen,Urine None detected
[2022-03-28] MEDS ORDERED: VANCOMYCIN 1 GM VIAL TOPICAL SCH (15:00)
[2022-03-28] MEDS ORDERED: ACETAMINOPHEN 1,000 MG/100 ML BAG IV ONE (16:17)
[2022-03-28] MEDS ORDERED: METHOCARBAMOL 1,000 MG/10 ML VIAL IV PRN (16:17)
[2022-03-28] MEDS ORDERED: LACTATED RINGERS 1,000 ML IV SCH (16:30)
--- NOTE | 2022-03-28 16:41 | Brief Operative Note ---
Brief Operative Note Date of procedure: 03/28/22 Pre-op diagnosis: right tibia/fibula fracture Post-op diagnosis: same Procedure: orif right tibia fracture Grafts/Implants: Yes Anesthesia: GETA Findings: right comminuted distal 3rd tibia fracture and distal fibula fracture Complications: none Surgeon: Lara Michael Creative Services Specialist: Julio C Curtis Estimated blood loss (cc): 400 Tourniquet Time (Minutes): 0 Specimens Removed/Pathology: none sent Condition: stable Disposition: PACU
[2022-03-28] MEDS ORDERED: FLEETS ADULT ENEMA PR PRN (16:51)
[2022-03-28] MEDS ORDERED: TRANEXAMIC ACID 1,000 MG/10 ML VIAL IV ONE (16:51)
[2022-03-28] MEDS ORDERED: BISACODYL 10 MG SUPP.RECT PR PRN (16:51)
[2022-03-28] MEDS ORDERED: MAGNESIUM HYDROXIDE 30 ML ORAL.SUSP PO PRN (16:51)
[2022-03-28] MEDS ORDERED: POLYETHYLENE GLYCOL 3350 17 GM PACKET PO PRN (16:51)
[2022-03-28] MEDS ORDERED: METHOCARBAMOL 500 MG TABLET PO PRN (17:07)
[2022-03-28] MEDS: fentaNYL 100 MCG/2 ML VIAL IV PRN ×6 (17:18→17:40)
--- NOTE | 2022-03-28 18:03 | XRay Report ---
CLINICAL INFORMATION: ORIF distal tibia fracture COMPARISON: Preoperative CT 03/28/2022 FINDINGS: Comminuted butterfly fracture of the distal tibial diaphysis has been reduced to anatomic alignment and transfixed by IM aman and interlocking screws. The comminuted spiral fracture distal fibula has also been reduced to anatomic alignment. Joint spaces are normal.. IMPRESSION: ORIF distal tibial fracture in anatomic alignment. Spiral fracture of the distal fibula is also been reduced to anatomic alignment Interpreted and Authenticated by: Aaron Robles 03/28/22
[2022-03-28] MEDS: oxyCODONE HCL 5 MG TABLET PO PRN ×3 (18:07→23:55)
[2022-03-28] MEDS: LACTATED RINGERS 1,000 ML IV SCH (18:11)
--- NOTE | 2022-03-28 18:31 | XRay Report ---
CLINICAL INFORMATION: ORIF distal tibia fracture. COMPARISON: None. FINDINGS: Digital images from the OR show spiral fracture distal tibial diaphysis to be reduced to anatomic alignment and transfixed by IM aman and interlocking screws. Spiral fracture distal fibula is also reduced to anatomic alignment. Total fluoroscopy time 2.3 minutes. IMPRESSION: Intraoperative films as described. Total fluoroscopy time 2.3 minutes Interpreted and Authenticated by: Aaron Robles 03/28/22
[2022-03-28] MEDS: METOPROLOL SUCCINATE 25 MG TAB.XL.24H PO SCH (21:04)
[2022-03-28] MEDS: DOCUSATE SODIUM 100 MG CAPSULE PO SCH (21:04)
[2022-03-28] MEDS: SENNOSIDES 1 TABLET PO SCH (21:04)
[2022-03-28] MEDS: ceFAZolin 1 GM VIAL IV SCH (21:16)
[2022-03-28] MEDS: ESCITALOPRAM 10 MG TABLET PO SCH (21:16)
[2022-03-28] MEDS: PRAZOSIN 5 MG CAPSULE PO SCH (21:16)
[2022-03-28] MEDS: ACETAMINOPHEN 500 MG TABLET PO SCH (21:24)
[2022-03-28] MEDS ORDERED: 0.9 % SODIUM CHLORIDE 10 ML SYRINGE IV SCH (22:00)
[2022-03-29] MEDS: DEXTROSE 5%-1/2NS 1,000 ML IV SCH (00:22)
[2022-03-29] MEDS: LACTATED RINGERS 1,000 ML IV SCH ×3 (01:17→23:50)
[2022-03-29] MEDS: oxyCODONE HCL 5 MG TABLET PO PRN ×4 (04:07→21:29)
[2022-03-29] MEDS: ceFAZolin 1 GM VIAL IV SCH (05:10)
[2022-03-29] MEDS: ACETAMINOPHEN 500 MG TABLET PO SCH ×3 (05:15→22:06)
--- NOTE | 2022-03-29 07:29 | Orthopedic Progress Note ---
SUBJECTIVE Subjective Patient information: Note initiated : 03/29/22 at 7:24 am Service Date, if different from initiated Date: [] Patient: Bunny Doran 61 y/o M admitted on 03/28/22 for right leg injury. Chief Complaint: [No acute issues overnight. pain moderately controlled. No CP/SOB, tolerating oral intake. robaxin causes upset stomach.] Constitutional Vitals: Vital Signs Temp Pulse Resp BP Pulse Ox O2 Del Method O2 Flow Rate 98.8 F 90 18 110/53 97 Room Air 0 03/29/22 03:05 03/29/22 03:05 03/29/22 03:05 03/29/22 03:05 03/29/22 03:05 03/29/22 03:05 03/28/22 20:00 Period Temp Pulse Resp BP Sys/Aguirre Pulse Ox O2 Del Method O2 Flow Rate Last 24 Hr 97 F-98.8 F 53-92 7-19 96-144/53-89 89-100 Room Air-Simple Mask 0-6 Intake and Output 03/28/22 03/29/22 03/29/22 19:59 03:59 11:59 Intake Total 4750 910 Output Total 1000 200 Balance 3750 710 Weight 140 lb 12.8 oz Intake & Output: Intake & Output 03/28/22 03/29/22 03/29/22 19:59 03:59 11:59 Intake Total 4750 910 Output Total 1000 200 Balance 3750 710 Weight 140 lb 12.8 oz Intake: IV 1150 710 Sodium Chloride 0.9% 1,000 ml @ 0 100 mls/hr IV .Q10H [facility]IM Rx#: [id number] Dextrose 5%-1/2Ns IV Solution 1 1000 ,000 ml @ 100 mls/hr IV .Q10H SLIM Rx#:[id number] Lactated Ringers 1,000 ml @ 100 710 mls/hr IV .Q10H [facility]IM Rx#: [id number] Ancef 2 gm In Dextrose 5% in 50 Water 50 ml @ 100 mls/hr IV PREOP SLIM Rx#:[id number] Oral 200 IV - Manual Only 3600 Output: Void Amount 200 Estimated Blood Loss 1000 Other: Meal Sandwhich Percent of Meal Consumed 100% Feeding Ability Independent Urine Appearance Clear Urine Color Yellow Yellow Urine Odor Normal Additional findings Additional findings: alert and appropriate right leg: dressing clean dry and intact. boot in place. removed. foot warm well perfused. general sensation intact OBJ DATA Labs 03/28/22 03:06 Labs: Abnormal Lab Results 03/28/22 03/28/22 03/28/22 11:55 03:17 03:06 RBC 4.51 L Hgb 11.9 L Hct 37.5 L POC Hct 37.0 L RDW 17.2 H Immature Gran % (Auto) 0.9 H Lymph % (Auto) 11.2 L Lymph # (Auto) 0.61 L POC BUN 28 H POC WB Ioniz Calcium 1.10 L U Marijuana (THC) Screen Suspect positive A Meds: Medications Acetaminophen (Acetaminophen 500 Mg Tablet) 1,000 mg PO Q8 [facility]; Protocol Last Admin: 03/29/22 05:15 Dose: 1,000 mg Bisacodyl (Bisacodyl 10 Mg Supp.Rect) 10 mg MS Q2-3DAYS PRN PRN Reason: Constipation Docusate Sodium (Docusate Sodium 100 Mg Capsule) 100 mg PO BID [facility] Last Admin: 03/28/22 21:04 Dose: 100 mg Doxycycline Hyclate (Doxycycline Hyclate 100 Mg Tablet.Orl) 100 mg PO BID [facility] Last Admin: 03/28/22 21:28 Dose: 100 mg Enoxaparin Sodium (Enoxaparin 40 Mg/0.4 Ml Syringe) 40 mg SQ DAILY [facility] Escitalopram Oxalate (Escitalopram 10 Mg Tablet) 10 mg PO QHS [facility] Last Admin: 03/28/22 21:16 Dose: 10 mg Hydroxyzine HCl (Hydroxyzine 25 Mg Tablet) 25 mg PO QAM [facility] Last Admin: 03/28/22 08:50 Dose: 25 mg Hydroxyzine HCl (Hydroxyzine 25 Mg Tablet) 50 mg PO HS [facility] Last Admin: 03/28/22 21:05 Dose: 50 mg Lactated Ringer's (Lactated Ringers) 1,000 mls @ 100 mls/hr IV .Q10H [facility] Last Admin: 03/29/22 01:17 Dose: 100 mls/hr Lamotrigine (Lamotrigine 100 Mg Tablet) 300 mg PO QHS [facility] Last Admin: 03/28/22 21:04 Dose: 300 mg Lamotrigine (Lamotrigine 100 Mg Tablet) 200 mg PO DAILY [facility] Last Admin: 03/28/22 08:51 Dose: 200 mg Magnesium Hydroxide (Magnesium Hydroxide 30 Ml Oral.Susp) 30 ml PO BIDP PRN PRN Reason: Constipation Methocarbamol (Methocarbamol 500 Mg Tablet) 500 mg PO Q8HP PRN PRN Reason: Muscle Spasm Last Admin: 03/28/22 19:22 Dose: 500 mg Metoprolol Succinate (Metoprolol Succinate 25 Mg Tab.Xl.24h) 25 mg PO QPM [facility] Last Admin: 03/28/22 21:04 Dose: 25 mg Morphine Sulfate (Morphine 2 Mg/Ml Vial) 2 mg IV Q4HP PRN; Protocol PRN Reason: Per Pain Protocol Naloxone HCl (Naloxone Hcl 0.4 Mg/Ml Vial) 0.1 mg IV Q2MIN PRN PRN Reason: Opiate Reversal Nicotine (Nicotine 21 Mg Patch) 21 mg TOPICAL DAILY@1000 [facility] Last Admin: 03/28/22 11:24 Dose: 21 mg Oxycodone HCl (Oxycodone Hcl 5 Mg Tablet) 5 - 10 mg PO Q4HP PRN; Protocol PRN Reason: Per Pain Protocol Last Admin: 03/29/22 04:07 Dose: 10 mg Polyethylene Glycol (Polyethylene Glycol 3350 17 Gm Packet) 17 gm PO DAILYP PRN PRN Reason: Constipation Prazosin HCl (Prazosin 5 Mg Capsule) 5 mg PO QHS [facility] Last Admin: 03/28/22 21:16 Dose: 5 mg Pregabalin (Pregabalin 150 Mg Capsule) 450 mg PO QHS [facility] Last Admin: 03/28/22 21:05 Dose: 450 mg Pregabalin (Pregabalin 150 Mg Capsule) 150 mg PO DAILY [facility] Last Admin: 03/28/22 11:03 Dose: 150 mg Promethazine HCl (Promethazine 25 Mg/Ml Vial) 12.5 mg IM Q6HP PRN; Protocol PRN Reason: Nausea And Vomiting Scopolamine (Scopolamine 1 Patch Patch) 1 patch TOPICAL PREOP PRN PRN Reason: Nausea And Vomiting Senna (Sennosides 1 Tablet) 2 tab PO HS [facility] Last Admin: 03/28/22 21:04 Dose: 2 tab Sodium Biphosphate/Sodium Phosphate (Fleets Adult Enema) 1 dose MS Q3-4DAYS PRN PRN Reason: Constipation A/P Assessment and plan (1) Tibia/fibula fracture: Assessment and plan: POD 1 s/p IM nail right tibia. closed management of fibula fracture --foot flat weight bearing given comminuted fracture --oral pain meds. will change dosing. d/c robaxin --pt for mobilization today- walker preferred --prophy: IS, mobilization, lovenox starting today, foot pumps --dispo: pending- hospitalist recommend transfer for neurology, will defer. will see how he does with therapy and change with pain management. Status: Acute Time Spent With Patient Time: Total time spent is greater than 50% in coordination of care (as documented) at patient's floor/unit and/or counseling patient:
--- NOTE | 2022-03-29 09:12 | Operative Note ---
DATE OF OPERATION: 03/28/2022 PREOPERATIVE DIAGNOSIS: Right distal third tibia and fibula fracture. POSTOPERATIVE DIAGNOSIS: Right distal third tibia and fibula fracture. PROCEDURE PERFORMED: Operative fixation of right distal tib-fib fracture, comminuted. SURGEON: Laar Michael M.D. SUBSTATION INSPECTOR: Julio C Curtis PA-C. The PA's assistance was required for the safe and efficient completion of the entire case. This provider's expertise and technical skill were required throughout the case. The PA assisted with preoperative coordination, intraoperative retraction, wound closure, dressing and splint application, as well as postoperative documentation and care coordination. ANESTHESIA: General. INTRAVENOUS FLUIDS: 1500 mL lactated Ringer's. ESTIMATED BLOOD LOSS: 400 mL. TOURNIQUET TIME: Not applicable. ANTIBIOTICS: 2 grams Ancef. IMPLANTS: [place] tibial nail 12 x 390, and a one-third tubular plate with unicortical 3.5 screws. INTRAOPERATIVE COMPLICATIONS: None apparent. PATHOLOGY/LAB: None. INDICATIONS FOR PROCEDURE: The patient is a 61-year-old male who sustained a seizure resulting in a fall with a comminuted distal tib-fib fracture. Given the unstable nature of the fracture, my recommendation was for operative treatment to restore stability, mechanical alignment and function. I discussed the risks as well as benefits of surgery and expectations, and he wished to proceed. OPERATIVE FINDINGS: He has a comminuted fracture, spiral in nature with no posterior malleolar fracture, comminuted distal fibular fracture. DESCRIPTION OF PROCEDURE: The patient was met in the preoperative holding area where site was verified and marked with the patient's input. He was then taken back to the operating room where he underwent successful general anesthesia. He was placed in supine position with the right lower extremity padded tourniquet placed about the proximal thigh and then cleaned with a chlorhexidine wipe. The splint was removed. He was then prepped and draped in the usual sterile fashion with ChloraPrep. Surgical timeout was performed to verify patient identity, correct procedure being performed, and correct extremity being operated on. Everybody was in agreement. Initially, we worked on our fracture reduction and made two percutaneous stab incisions to reduce the fracture with a [id number] as it appeared to be spiral. However, CT demonstrated it was comminuted. This comminuted fragment was an intercalated butterfly fragment, but on top of that, the butterfly fragment appeared to be comminuted as well and, thus, when attempted to gain the reduction with percutaneous clamps, I was able to costa in the posterior inferior fragment, and it kept falling into a bit of valgus alignment. I did paralyze the patient to get overall [id number] tension on the fracture, and with reduction I could again not get the intercalated fragment to costa in to stay in a reduced fashion. Given that, I elected to proceed with a small open incision over the anterolateral aspect of the tibia at the level of the fracture. Skin was sharply incised. The fascia over the anterior compartment was incised and blunt dissection was taken down to the tibia fracture. This was visualized laterally as well as medially. This was then reduced with a clamp [id number] and then I did isolate multiple fragments posteriorly and posteromedially, but to correct rotation able to costa in the crest of the tibia anteriorly as well as the lateral rotation. These two fragments with the intercalary fragment did allow for reduction and what appeared to be overall length of the fracture. I placed a one-third tubular plate here with unicortical screws to hold the overall alignment while we placed our nail. He was relatively tall and, thus, I used a tall triangle. At this point, we kept our clamps in place but also flexed the knee and gained our entry point into the proximal tibia. This was completed through a transpatellar tendon approach. Skin was sharply incised. He did have what appears to be a sebaceous type of cyst deep to the skin, which was removed in its entirety and curetted out. The peritenon of the patellar tendon was incised. The central portion of the patellar tendon was incised and retractor was placed. The fat pad was elevated anteriorly off, but remained extraarticular. Our starting point was on the upslope of the lateral tibial spine and on the articular margin on the lateral view. The guide pin was placed. I placed a tissue protector to gain entry into the canal and we placed this guidewire with a ball-tipped guidewire with a small bent. We verified position of the distal tibia, which appeared to be center-center position on AP and lateral. This was reamed up to a 12.5 mm for 11 mm nail. The length was then taken as well, which measured 405; however, we were full at the very distal aspect into the physeal scar with the tip. Electd the next shorter nail, which was a 390. Once this was drilled, the nail was placed atraumatically and verified position on AP and lateral of the fracture site while placing the nail, but also proximally to ensure that we were subchondral. The guidewire was then removed. Distal interlocks were placed with perfect comanche technique and verified to be within the nail itself on multiple views AP and lateral. Proximally, we placed static locking x2, ensuring they were not long screws with oblique views. The fracture was stable with the construct in place. The aiming arm was removed. The wound was copiously irrigated with IrriSept as well as normal irrigation. Vancomycin was placed within the wound and irrigated the patellar incision quite extensively as well to ensure we removed the bone with reaming and placed vancomycin powder here as well. The subcutaneous tissue was closed with 2-0 Vicryl over the anterolateral fracture site. Skin was closed with a running 2-0 nylon. The small stab incisions for the interlocks were closed with efren. The deep parapatellar incision was closed in a layered fashion with 2-0 for the peritenon and subcutaneous tissue with 2-0 Vicryl and skin closed with 3-0 nylon in running fashion. The leg was then cleaned and dried. Xeroform was placed along with fluffs, Webril, Erick wrap, and he was placed into a walking boot. The patient awoke from anesthesia and was transferred to PACU in stable condition. POSTOPERATIVE PLAN: The patient will be admitted back to the floor for observation and to ensure adequate pain control and compartment monitoring. He can be 50% weightbearing for the first 4 to 6 weeks. [email or web address]:frank Job ID: [id number] Doc ID: [id number] Lara Michael MD [facility]ENTERE[facility]
[2022-03-29] MEDS: lamoTRIgine 100 MG TABLET PO SCH ×2 (09:14→21:28)
[2022-03-29] MEDS: hydrOXYzine 25 MG TABLET PO SCH ×2 (09:15→21:28)
[2022-03-29] MEDS: DOCUSATE SODIUM 100 MG CAPSULE PO SCH ×2 (09:15→21:29)
[2022-03-29] MEDS: DOXYCYCLINE HYCLATE 100 MG TABLET.ORL PO SCH ×2 (09:15→21:28)
[2022-03-29] MEDS: ENOXAPARIN 40 MG/0.4 ML SYRINGE SQ SCH (09:15)
[2022-03-29] MEDS: PREGABALIN 150 MG CAPSULE PO SCH ×2 (09:19→21:27)
[2022-03-29] MEDS: NICOTINE 21 MG PATCH TOPICAL SCH (09:30)
[2022-03-29] MEDS: METOPROLOL SUCCINATE 25 MG TAB.XL.24H PO SCH (21:28)
[2022-03-29] MEDS: SENNOSIDES 1 TABLET PO SCH (21:28)
[2022-03-29] MEDS: ESCITALOPRAM 10 MG TABLET PO SCH (21:29)
[2022-03-29] MEDS: PRAZOSIN 5 MG CAPSULE PO SCH (22:16)
[2022-03-30] MEDS: oxyCODONE HCL 5 MG TABLET PO PRN ×2 (03:11→08:36)
[2022-03-30] MEDS: ACETAMINOPHEN 500 MG TABLET PO SCH (05:32)
--- NOTE | 2022-03-30 07:06 | Discharge Summary ---
Discharge Provider Provider IMPORTANT FOLLOW-UP INFORMATION FOR PCP: Patient information: Note initiated : 03/30/22 at 7:02 am Service Date, if different from initiated Date: [] Patient: Bunny Doran 61 y/o M admitted on 03/28/22 for right leg injury. Chief Complaint: [] Date of admission: 03/28/22 04:52 Discharge date: 03/30/22 Primary care physician: [facility] Admitting clinician: Lara Michael Consults: 03/28/22 Consult to Physician [CONS] Stat Comment: Consulting Provider: Scott Vegas Reason For Exam: Physician to Consult Consult to Physician [CONS] Stat Comment: Consulting Provider: Lara Michael Reason For Exam: Physician to Consult Consult to Physician [CONS] Stat Comment: tib/fib fracture Consulting Provider: Lara Michael Reason For Exam: Physician to Consult COURSE Hospital Course Hospital course: Patient admitted for closed comminuted fracture of tibia and fibula after injury from seizure. Operative management was IM nail of tibia and closed treatment of fibula. Patient admitted after surgery for post operative pain control and PT. Discharged on POD 2. Hospitalists consulted for seizure disorder. Discharge diagnosis: tibia and fibula fracture of right leg Secondary discharge diagnosis: Seizure disorder Time Spent with Patient Time attestation: Total time spent providing and/or coordinating discharge services: Time spent: Less than 30 minutes Physical Examination Narrative Exam Narrative: Incision healing, dressings dry and intact, candelaria bandage applied, mild swelling in RLE, no calf tenderness, NVI DC Instructions-General Patient Instructions Dressing Care: May shower in 2 days and Cover dressing in shower Additional Dressing Instructions: Re apply clean guaze and candelaria bandage to wounds daily after showers. Discharge Plan Patient/Caregiver Discharge Instructions Activity: increase activity as tolerated Diet: Regular Diet Instructions: Swollen Joint (GEN) Prescriptions: New acetaminophen 500 mg Tablet 1,000 mg PO Q8 Qty: 120 0RF oxycodone 5 mg Tablet 5 - 10 mg PO Q4HP PRN (Reason: Per Pain Protocol) Qty: 60 0RF enoxaparin 40 mg/0.4 mL Syringe 40 mg SQ DAILY 30 Days Qty: 30 0RF Continued prazosin 5 mg capsule 5 mg PO QHS Qty: 90 3RF escitalopram oxalate 20 mg tablet 10 mg PO QHS 30 Days Qty: 15 3RF lamotrigine 100 mg tablet 100 mg PO QHS Qty: 30 2RF pregabalin 150 mg capsule 150 mg PO BID 30 Days Qty: 60 3RF Rx Instructions: Also taking 300mg capsule nightly (total dose/24HRS = 600mg) pregabalin 300 mg capsule 300 mg PO QHS Qty: 30 2RF Rx Instructions: Also taking 150mg capsule BID (total dose/24HRS = 600mg) lamotrigine 200 mg tablet 200 mg PO BID Qty: 60 2RF hydroxyzine HCl 25 mg tablet See Rx Instructions .ROUTE .COMPLEX Qty: 90 2RF Rx Instructions: TAKE ONE TAB BY MOUTH IN AM + TWO TABS BY MOUTH AT BEDTIME doxycycline hyclate 100 mg capsule 1 cap PO BID Follow Up Plan Follow up with: Julio C Curtis PA-C [Physician Fuel Retrofitting Technician] - (10-14 days) Clinic,[facility] [Primary Care Provider] - Patient Disposition: Home, Self-Care Prognosis: Good Rehab Potential: Good Overall status at discharge: patient is progressing back to baseline Discharge Orders: Discharge Order (Routine); Ordered 03/30/22 Ordered By: Julio C Curtis Pending Pending Pending: Resuscitation Status Resuscitate (Full Code) Diet Regular Diet Start SatMar 28 1654 Acetaminophen (Acetaminophen 500 Mg Tablet) 1,000 mg PO Q8 [facility]; Protocol Last Admin: 03/30/22 05:32 Dose: 1,000 mg Documented By: Admin: 03/29/22 22:06 Dose: 1,000 mg Documented By: Admin: 03/29/22 14:20 Dose: 1,000 mg Documented By: Admin: 03/29/22 05:15 Dose: 1,000 mg Documented By: Admin: 03/28/22 21:24 Dose: 1,000 mg Documented By: YESSENIA Docusate Sodium (Docusate Sodium 100 Mg Capsule) 100 mg PO BID [facility] Last Admin: 03/29/22 21:29 Dose: 100 mg Documented By: Admin: 03/29/22 09:15 Dose: 100 mg Documented By: Admin: 03/28/22 21:04 Dose: 100 mg Documented By: YESSENIA Doxycycline Hyclate (Doxycycline Hyclate 100 Mg Tablet.Orl) 100 mg PO BID [facility] Last Admin: 03/29/22 21:28 Dose: 100 mg Documented By: Admin: 03/29/22 09:15 Dose: 100 mg Documented By: Admin: 03/28/22 21:28 Dose: 100 mg Documented By: Admin: 03/28/22 11:04 Dose: 100 mg Documented By: JABARI Enoxaparin Sodium (Enoxaparin 40 Mg/0.4 Ml Syringe) 40 mg SQ DAILY [facility] Last Admin: 03/29/22 09:15 Dose: 40 mg Documented By: ALFA Escitalopram Oxalate (Escitalopram 10 Mg Tablet) 10 mg PO QHS [facility] Last Admin: 03/29/22 21:29 Dose: 10 mg Documented By: Admin: 03/28/22 21:16 Dose: 10 mg Documented By: YESSENIA Hydroxyzine HCl (Hydroxyzine 25 Mg Tablet) 25 mg PO QAM [facility] Last Admin: 03/29/22 09:15 Dose: 25 mg Documented By: Admin: 03/28/22 08:50 Dose: 25 mg Documented By: JABARI Hydroxyzine HCl (Hydroxyzine 25 Mg Tablet) 50 mg PO HS [facility] Last Admin: 03/29/22 21:28 Dose: 50 mg Documented By: Admin: 03/28/22 21:05 Dose: 50 mg Documented By: YESSENIA Lactated Ringer's (Lactated Ringers) 1,000 mls @ 100 mls/hr IV .Q10H [facility] Last Admin: 03/29/22 23:50 Dose: Not Given Documented By: Admin: 03/29/22 12:08 Dose: Not Given Documented By: Infusion: 03/29/22 11:41 Dose: 0 mls/hr Documented By: Admin: 03/29/22 01:17 Dose: 100 mls/hr Documented By: Infusion: 03/29/22 01:17 Dose: 100 mls/hr Documented By: Admin: 03/28/22 18:11 Dose: 100 mls/hr Documented By: JABARI Lamotrigine (Lamotrigine 100 Mg Tablet) 300 mg PO QHS [facility] Last Admin: 03/29/22 21:28 Dose: 300 mg Documented By: Admin: 03/28/22 21:04 Dose: 300 mg Documented By: YESSENIA Lamotrigine (Lamotrigine 100 Mg Tablet) 200 mg PO DAILY [facility] Last Admin: 03/29/22 09:14 Dose: 200 mg Documented By: Admin: 03/28/22 08:51 Dose: 200 mg Documented By: JABARI Metoprolol Succinate (Metoprolol Succinate 25 Mg Tab.Xl.24h) 25 mg PO QPM [facility] Last Admin: 03/29/22 21:28 Dose: 25 mg Documented By: Admin: 03/28/22 21:04 Dose: 25 mg Documented By: YESSENIA Nicotine (Nicotine 21 Mg Patch) 21 mg TOPICAL DAILY@1000 [facility] Last Admin: 03/29/22 09:30 Dose: 21 mg Documented By: Admin: 03/28/22 11:24 Dose: 21 mg Documented By: JABARI Oxycodone HCl (Oxycodone Hcl 5 Mg Tablet) 5 - 10 mg PO Q4HP PRN; Protocol PRN Reason: Per Pain Protocol Last Admin: 03/30/22 03:11 Dose: 10 mg Documented By: Admin: 03/29/22 21:29 Dose: 10 mg Documented By: Admin: 03/29/22 14:24 Dose: 5 mg Documented By: Admin: 03/29/22 09:26 Dose: 5 mg Documented By: Admin: 03/29/22 04:07 Dose: 10 mg Documented By: Admin: 03/28/22 23:55 Dose: 10 mg Documented By: Admin: 03/28/22 19:21 Dose: 5 mg Documented By: Admin: 03/28/22 18:07 Dose: 5 mg Documented By: JABARI Prazosin HCl (Prazosin 5 Mg Capsule) 5 mg PO QHS [facility] Last Admin: 03/29/22 22:16 Dose: 5 mg Documented By: Admin: 03/28/22 21:16 Dose: 5 mg Documented By: YESSENIA Pregabalin (Pregabalin 150 Mg Capsule) 450 mg PO QHS [facility] Last Admin: 03/29/22 21:27 Dose: 450 mg Documented By: Admin: 03/28/22 21:05 Dose: 450 mg Documented By: YESSENIA Pregabalin (Pregabalin 150 Mg Capsule) 150 mg PO DAILY [facility] Last Admin: 03/29/22 09:19 Dose: 150 mg Documented By: Admin: 03/28/22 11:03 Dose: 150 mg Documented By: JABARI Senna (Sennosides 1 Tablet) 2 tab PO HS [facility] Last Admin: 03/29/22 21:28 Dose: 2 tab Documented By: Admin: 03/28/22 21:04 Dose: 2 tab Documented By: YESSENIA Shift Summary 03/30/22 05:11 Shift Summary by Luna Fernandes Primary Diagnosis: Rt tib/fib fracture; ORIF Registration Status: OBS Date of Surgery (if applicable): 03/28/22 Pertinent Medical Dx/Issue(s): HTN, valve replacement, anxiety/depression, suicide attempt, PTSD, COPD, emphysema Med management (antibiotics, diuretics, BP): doxycycline, toprol, psych meds Skin/Wound Care: CANDELARIA dressing Rt lower extremity intact Vital Signs with Trends: Soft BP, MAP >65 O2, liter flow/saturations: RA Pain management (acute vs. chronic): scheduled tylenol, oxycodone x 2 today; effective Lab/Rad (abnormals, trends): Neuro/Mental Status: A/O x4 Urinary Elimination Device: urinal Urinary output greater than 30mL/hr? Yes Date of last BM: unknown Lines/Tubes: SL Activity: Refused to get OOB this shift, needs boot on when out of bed, anxiously awaiting to go home Recommendations/questions for MD: Discharge Plan (needs, disposition, etc): Home today Patient mostly cooperative and pleasant. Slept most of night, awoke to sounds of other patient's, but refuses to have door closed. Anxious to go home and states he wants to leave as early as he can. Was reported during shift change that patient's family is getting him around 1600. Patient made aware and states that isn't going to work. BP has been soft, but MAP remains >65, otherwise VSS on RA. Initialized on 03/30/22 05:11 - END OF NOTE
[2022-03-30] MEDS: LACTATED RINGERS 1,000 ML IV SCH (07:34)
[2022-03-30] MEDS: NICOTINE 21 MG PATCH TOPICAL SCH (08:35)
[2022-03-30] MEDS: ENOXAPARIN 40 MG/0.4 ML SYRINGE SQ SCH (08:35)
[2022-03-30] MEDS: PREGABALIN 150 MG CAPSULE PO SCH (08:36)
[2022-03-30] MEDS: DOCUSATE SODIUM 100 MG CAPSULE PO SCH (08:36)
[2022-03-30] MEDS: lamoTRIgine 100 MG TABLET PO SCH (08:36)
[2022-03-30] MEDS: DOXYCYCLINE HYCLATE 100 MG TABLET.ORL PO SCH (08:36)
[2022-03-30] MEDS: hydrOXYzine 25 MG TABLET PO SCH (08:37)
[2022-04-09 15:33] LABS: Cannabinoid Confirmation Positive
== END 2022-03-30 09:28 | disposition home or self-care (01) ==
LOC: ED 02:26 → MEDSUR 02:26
PROVIDERS: ADMIT Orthopaedic Surgery; ATTEND Orthopaedic Surgery

== ENCOUNTER 2022-05-24 16:00 | Inpatient (IN) ==
[2022-05-24 18:20] LABS: Basophils # (Auto) 0.04 K/mcL (0.00-0.30); Basophils % (Auto) 0.8 % (0.0-2.0); Eosinophils # (Auto) 0.23 K/mcL (0.00-0.70); Eosinophils % (Auto) 4.4 % (0.0-7.0); Hematocrit 35.5 % (40.1-51.0); Hemoglobin 10.9 g/dL (13.7-17.5); Lymphocytes # (Auto) 0.79 K/mcL (1.50-4.80); Lymphocytes % (Auto) 15.2 % (15.5-49.0); Mean Cell Volume 84.7 fL (80.0-100.0); Mean Corpuscular HGB Conc 30.7 g/dL (31.0-36.0); Mean Platelet Volume 9.8 fL (8.8-12.5); Monocytes # (Auto) 0.46 K/mcL (0.10-0.90); Monocytes % (Auto) 8.8 % (1.0-12.0); Neutrophils % (Auto) 70.2 % (38.0-78.0); Platelet Count 376 K/mcL (140-440); RBC 4.19 M/mcL (4.63-6.08); Red Cell Distribution Width 16.2 % (11.5-14.5); WBC 5.2 K/mcL (4.5-11.0)
[2022-05-24 18:26] LABS: Appearance,Urine CLEAR (Clear); Bilirubin,Urine Negative (Negative); Color,Urine YELLOW; Culture Indicated,Urine No; Glucose,Urine (UA) Negative (Negative); Ketones,Urine Negative (Negative); Leukocyte Esterase,Urine Negative /uL (Negative); Mucus,Urine FEW /hpf; Nitrate,Urine Negative (Negative); Protein,Urine 30 mg/dL (Negative); Specific Gravity,Urine 1.025 (1.000-1.035); Urine Blood Negative (Negative); Urine RBC < 1 /hpf (0-3); Urine Squamous Epithelial Cell 0 /hpf (0-4); Urine WBC < 1 /hpf (0-4); Urobilinogen,Urine Negative
[2022-05-24 18:26] LABS: Blood Urea Nitrogen 21 mg/dL (6-20); Calcium 8.7 mg/dL (8.6-10.4); Carbon Dioxide 26 mmol/L (22-30); Chloride 103 mmol/L (96-108); Glomerular Filtration Rate 60; Glucose 84 mg/dL (70-105)
[2022-05-25] MEDS ORDERED: IPRATROPIUM/ALBUTEROL 3 ML AMPUL.NEB NEB PRN ×2 (00:38→16:07)
[2022-05-25] MEDS ORDERED: SCOPOLAMINE 1 PATCH PATCH TOPICAL PRN (00:38)
[2022-05-25] MEDS ORDERED: oxyCODONE 10 MG TAB.ER.12H PO SCH (06:00)
[2022-05-25] MEDS ORDERED: CELECOXIB 200 MG CAPSULE PO SCH (06:00)
[2022-05-25] MEDS ORDERED: PREGABALIN 75 MG CAPSULE PO SCH (06:00)
[2022-05-25] MEDS ORDERED: ceFAZolin 2 GM in DEXTROSE 5% IN WATER 50 ML IV SCH (06:00)
[2022-05-25] MEDS ORDERED: 0.9 % SODIUM CHLORIDE 9 ML, KETOROLAC 30 MG, ROPIVACAINE HCL/PF 49.5 ML, EPINEPHrine 0.... IJ SCH (06:00)
[2022-05-25] MEDS ORDERED: ACETAMINOPHEN 500 MG TABLET PO SCH (06:00)
--- NOTE | 2022-05-25 10:57 | EKG ---
[facility] Test Date: 2022-05-24 Pat Name: Bunny Doran Department: RT Room: Gender: Male Race Relations Adviser: : 1960 Requested By: Hayder See Order Number: [id number] [place] MD: Aaron Austin M.D. Measurements Intervals [place] Rate: 68 P: 79 MA: 140 QRS: 87 QRSD: 98 T: 90 QT: 379 QTc: 403 Interpretive Statements Sinus rhythm Electronically Signed On 05-25-2022 10:57:16 PDT by Aaron Austin M.D. /[id number]
[2022-05-25] MEDS ORDERED: ONDANSETRON 4 MG/2 ML VIAL ONE (15:05)
[2022-05-25] MEDS ORDERED: KETAMINE 50 MG/ML Syringe (ANEST) IV ONE (15:05)
[2022-05-25] MEDS ORDERED: fentaNYL 100 MCG/2 ML VIAL IV ONE (15:05)
[2022-05-25] MEDS ORDERED: PROPOFOL 200 MG/20 ML VIAL IV ONE (15:05)
[2022-05-25] MEDS ORDERED: LIDOCAINE HCL/PF 100 MG/5 ML SYRINGE IV ONE (15:05)
[2022-05-25] MEDS ORDERED: MAGNESIUM SULFATE 2 GM/50 ML BAG IV ONE (15:05)
[2022-05-25] MEDS ORDERED: SUCCINYLCHOLINE 20 MG/ML ML IV ONE (15:05)
[2022-05-25] MEDS ORDERED: GLYCOPYRROLATE 0.2 MG/ML VIAL IV ONE (15:05)
[2022-05-25] MEDS ORDERED: ePHEDrine 50 MG/5 ML SYRINGE (ANEST) IV ONE (15:05)
[2022-05-25] MEDS ORDERED: DEXAMETHASONE 10 MG/ML VIAL ONE (15:05)
--- NOTE | 2022-05-25 15:32 | Discharge Plan ---
Discharge Instructions - [facility] Patient Instructions Total Hip Protocol: Follow activity instructions as provided by Physical Therapy. Dressing Care: May shower in 2 days and Aquacel Ag - leave on for 5 days Discharge Plan Patient/Caregiver Discharge Instructions Activity: ambulate only with your walker and as per physical therapy Diet: Regular Diet Prescriptions: New hydrocodone-acetaminophen 10-325 mg tablet 1 - 2 tab PO Q4H PRN (Reason: pain) Qty: 75 0RF aspirin [Ecotrin Low Strength] 81 mg tablet,delayed release (DR/EC) 81 mg PO BID Qty: 60 0RF docusate sodium 100 mg capsule 100 mg PO BID Qty: 60 0RF No Action prazosin 5 mg capsule 5 mg PO QHS Qty: 90 3RF lurasidone 40 mg tablet 40 mg PO .DAILY WITH DINNER Qty: 30 3RF pregabalin 150 mg capsule 150 mg PO BID 30 Days Qty: 60 3RF Rx Instructions: Also taking 300mg capsule nightly (total dose/24HRS = 600mg) pregabalin 300 mg capsule 300 mg PO QHS Qty: 30 2RF Rx Instructions: Also taking 150mg capsule BID (total dose/24HRS = 600mg) lamotrigine 200 mg tablet 200 mg PO BID Qty: 60 2RF hydroxyzine HCl 25 mg tablet See Rx Instructions .ROUTE .COMPLEX Qty: 90 2RF Rx Instructions: TAKE ONE TAB BY MOUTH IN AM + TWO TABS BY MOUTH AT BEDTIME doxycycline hyclate 100 mg capsule 1 cap PO BID rizatriptan 10 mg tablet,disintegrating 10 mg PO DAILYP PRN (Reason: Migraine Headache) metoprolol succinate 25 mg tablet extended release 24 hr 25 mg PO QPM lamotrigine 100 mg tablet 100 mg PO HS escitalopram oxalate 20 mg tablet 10 mg PO HS Other Ambulatory Orders: Physical Therapy DC - [facility] (Routine) Location: None Selected Ordered By: Dhiraj Rogers Toilet Riser Discharge Order (ONCE) Location: None Selected Ordered By: Dhiraj Rogers Walker (ONCE) Location: None Selected Ordered By: Dhiraj Rogers Follow Up Plan Follow up with: Maynor Sharma MD [Physician] - 06/08/22 10:40 am Dhiraj Rogers PA-C [Physician Medical Lab Director] - Patient Disposition: Home, Self-Care Prognosis: Good Rehab Potential: Good I certify that the patient requires SNF services: No Overall status at discharge: patient is progressing back to baseline Discharge Orders: Discharge Order (Routine); Ordered 05/26/22 Ordered By: Dhiraj Rogers
[2022-05-25] MEDS ORDERED: MEPERIDINE 25 MG/ML VIAL IV PRN (16:07)
[2022-05-25] MEDS ORDERED: METHOCARBAMOL 1,000 MG/10 ML VIAL IV PRN (16:07)
[2022-05-25] MEDS ORDERED: LACTATED RINGERS 250 ML IV PRN (16:07)
[2022-05-25] MEDS ORDERED: METOCLOPRAMIDE 10 MG/2 ML VIAL IV PRN (16:07)
[2022-05-25] MEDS ORDERED: diphenhydrAMINE 50 MG/ML VIAL IV PRN (16:07)
[2022-05-25] MEDS ORDERED: NALOXONE HCL 0.4 MG/ML VIAL IV PRN (16:07)
[2022-05-25] MEDS ORDERED: LACTATED RINGERS 1,000 ML IV SCH (16:15)
[2022-05-25] MEDS ORDERED: BENZOCAINE/MENTHOL 1 LOZENGE PO PRN (16:24)
[2022-05-25] MEDS ORDERED: TRANEXAMIC ACID 1,000 MG/10 ML VIAL IV ONE (16:24)
[2022-05-25] MEDS ORDERED: POLYETHYLENE GLYCOL 3350 17 GM PACKET PO PRN (16:24)
[2022-05-25] MEDS ORDERED: ONDANSETRON 4 MG/2 ML VIAL IV PRN ×2 (16:24)
[2022-05-25] MEDS ORDERED: BISACODYL 10 MG SUPP.RECT PR PRN (16:24)
[2022-05-25] MEDS ORDERED: MAGNESIUM HYDROXIDE 30 ML ORAL.SUSP PO PRN (16:24)
[2022-05-25] MEDS ORDERED: TEMAZEPAM 15 MG CAPSULE PO PRN ×2 (16:24→16:26)
[2022-05-25] MEDS ORDERED: FLEETS ADULT ENEMA PR PRN (16:24)
--- NOTE | 2022-05-25 16:24 | Brief Operative Note ---
Brief Operative Note Date of procedure: 05/25/22 Pre-op diagnosis: Right hip infection Post-op diagnosis: same Procedure: right hip Incision and debridement and revision femoral head Grafts/Implants: Yes Anesthesia: GETA Findings: right hip infection Complications: none Surgeon: Maynor Sharma Card Hanger: Dhiraj Rogers Estimated blood loss (cc): 50 Specimens Removed/Pathology: none sent Condition: stable Disposition: PACU
[2022-05-25] MEDS ORDERED: HYDROcodone/APAP 10/325MG TABLET PO PRN (16:26)
[2022-05-25] MEDS: fentaNYL 100 MCG/2 ML VIAL IV PRN ×4 (17:00→17:08)
[2022-05-25] MEDS: HYDROmorphone 0.5 MG/0.5 ML SYRINGE IV PRN ×2 (17:10→17:25)
[2022-05-25] MEDS: 0.45 % SODIUM CHLORIDE 1,000 ML IV SCH (17:44)
--- NOTE | 2022-05-25 18:18 | XRay Report ---
CLINICAL INFORMATION: Hip prostheses COMPARISON: None. FINDINGS: Right total hip prostheses in place. Slightly more lateral canting and anteversion of the acetabular component than typically seen. Older left total hip prostheses in stable position. No osseous abnormalities. Soft tissue swelling over the surgical site. IMPRESSION: Right total hip prostheses as described Interpreted and Authenticated by: Aaron Robles 05/25/22
[2022-05-25] MEDS: HYDROmorphone 1 MG/ML SYRINGE IV PRN ×2 (19:24→22:59)
[2022-05-25] MEDS ORDERED: ACETAMINOPHEN 325 MG TABLET PO PRN (20:00)
[2022-05-25] MEDS ORDERED: lamoTRIgine 100 MG TABLET PO SCH (21:00)
[2022-05-25] MEDS: NICOTINE 21 MG PATCH TOPICAL SCH (21:06)
[2022-05-25] MEDS: HYDROcodone/APAP 10/325MG TABLET PO PRN (21:06)
[2022-05-25] MEDS: PREGABALIN 150 MG CAPSULE PO SCH (21:34)
[2022-05-25] MEDS: SENNOSIDES 1 TABLET PO SCH (21:35)
[2022-05-25] MEDS: DOCUSATE SODIUM 100 MG CAPSULE PO SCH (21:35)
[2022-05-25] MEDS: ESCITALOPRAM 10 MG TABLET PO SCH (21:35)
[2022-05-25] MEDS: lamoTRIgine 100 MG TABLET PO SCH (21:35)
[2022-05-25] MEDS: PRAZOSIN 1 MG CAPSULE PO SCH (21:35)
[2022-05-25] MEDS: hydrOXYzine 25 MG TABLET PO SCH (21:35)
[2022-05-25] MEDS: 0.9 % SODIUM CHLORIDE 10 ML SYRINGE IV SCH (22:36)
[2022-05-25] MEDS: ceFAZolin 1 GM VIAL IV SCH (22:59)
[2022-05-26] MEDS: HYDROcodone/APAP 10/325MG TABLET PO PRN ×6 (01:07→21:26)
[2022-05-26] MEDS: HYDROmorphone 1 MG/ML SYRINGE IV PRN (01:37)
[2022-05-26] MEDS: 0.45 % SODIUM CHLORIDE 1,000 ML IV SCH ×3 (04:04→22:50)
[2022-05-26] MEDS: 0.9 % SODIUM CHLORIDE 10 ML SYRINGE IV SCH ×4 (04:59→22:35)
[2022-05-26] MEDS: ceFAZolin 1 GM VIAL IV SCH (07:01)
[2022-05-26] MEDS: DOCUSATE SODIUM 100 MG CAPSULE PO SCH ×2 (09:04→21:25)
[2022-05-26] MEDS: NICOTINE 21 MG PATCH TOPICAL SCH (09:04)
[2022-05-26] MEDS: lamoTRIgine 100 MG TABLET PO SCH ×2 (09:05→21:26)
[2022-05-26] MEDS: PREGABALIN 150 MG CAPSULE PO SCH ×2 (09:05→21:27)
[2022-05-26] MEDS: hydrOXYzine 25 MG TABLET PO SCH ×2 (09:05→21:24)
--- NOTE | 2022-05-26 09:11 | Orthopedic Progress Note ---
SUBJECTIVE Subjective Patient information: Note initiated : 05/26/22 at 9:05 am Service Date, if different from initiated Date: [] Patient: Bunny Doran 61 y/o M admitted on 05/25/22 for Right Posterior Total Hip Arthroplasty Revision. Chief Complaint: no cp no sob and eating well[] Principal diagnosis: right septic hip Pertinent ROS: neg Constitutional Vitals: Vital Signs Temp Pulse Resp BP Pulse Ox O2 Del Method O2 Flow Rate 97.3 F 85 20 110/75 96 Room Air 1 05/26/22 04:27 05/26/22 04:27 05/26/22 04:27 05/26/22 04:27 05/26/22 05:10 05/26/22 05:10 05/25/22 19:40 Period Temp Pulse Resp BP Sys/Aguirre Pulse Ox O2 Del Method O2 Flow Rate Last 24 Hr 97.0 F-98.9 F 54-95 6-20 81-159/52-79 91-100 Nasal Cannula- Room Air 0-6 Intake and Output 05/25/22 05/26/22 05/26/22 19:59 03:59 11:59 Intake Total 1250 2055 1660 Output Total 775 350 850 Balance 475 1705 810 Intake & Output: Intake & Output 05/25/22 05/26/22 05/26/22 19:59 03:59 11:59 Intake Total 1250 2055 1660 Output Total 775 350 850 Balance 475 1705 810 Intake: IV 50 975 Sodium Chloride 0.45% 1,000 ml 975 @ 100 mls/hr IV .Q10H [facility] Rx#: [id number] Ancef 2 gm In Dextrose 5% in 50 Water 50 ml @ 100 mls/hr IV PREOP [facility] Rx#:[id number] Oral 1080 1660 IV - Manual Only 1200 Output: Drainage 25 Right Hip JAMES Drain 25 Drainage 25 25 150 Right Hip JAMES Drain 25 25 150 Void Amount 650 300 700 Estimated Blood Loss 100 Other: Urine Appearance Clear Clear Clear Urine Color Yellow Dark Yellow Bright Yellow Pale Urine Odor Normal Foul Normal General appearance: average body habitus Expanded Lower Extremity Exam Upper Leg exam: Present full ROM Gait: Present antalgic OBJ DATA Labs 05/26/22 05:07 05/24/22 15:28 Labs: Abnormal Lab Results 05/26/22 05/24/22 05/24/22 05:07 15:45 15:28 RBC Hgb Hct 30.3 L MCHC RDW Immature Gran % (Auto) Lymph % (Auto) Lymph # (Auto) BUN 21 H Creatinine 1.3 H Urine Protein 30 A Urine Mucus Few A 05/24/22 15:28 RBC 4.19 L Hgb 10.9 L Hct 35.5 L MCHC 30.7 L RDW 16.2 H Immature Gran % (Auto) 0.6 H Lymph % (Auto) 15.2 L Lymph # (Auto) 0.79 L BUN Creatinine Urine Protein Urine Mucus Meds: Medications Acetaminophen (Acetaminophen 325 Mg Tablet) 650 mg PO Q6HP PRN; Protocol PRN Reason: Per Pain Protocol/Fever > 101 Hydrocodone Bitart/Acetaminophen (Hydrocodone/Apap 10/325mg Tablet) 1 - 2 tab PO Q4HP PRN; Protocol PRN Reason: Per Pain Protocol Last Admin: 05/26/22 04:58 Dose: 2 tab Bisacodyl (Bisacodyl 10 Mg Supp.Rect) 10 mg [place] Q2-3DAYS PRN PRN Reason: Constipation Docusate Sodium (Docusate Sodium 100 Mg Capsule) 100 mg PO BID [facility] Last Admin: 05/25/22 21:35 Dose: 100 mg Escitalopram Oxalate (Escitalopram 10 Mg Tablet) 10 mg PO [facility] Last Admin: 05/25/22 21:35 Dose: 10 mg Hydromorphone HCl (Hydromorphone 1 Mg/Ml Syringe) 0.5 - 2 mg IV Q2HP PRN; Protocol PRN Reason: Per Pain Protocol Last Admin: 05/26/22 01:37 Dose: 1 mg Hydroxyzine HCl (Hydroxyzine 25 Mg Tablet) 50 mg PO HS [facility] Last Admin: 05/25/22 21:35 Dose: 50 mg Hydroxyzine HCl (Hydroxyzine 25 Mg Tablet) 25 mg PO DAILY [facility] Sodium Chloride (Sodium Chloride 0.45%) 1,000 mls @ 100 mls/hr IV .Q10H [facility] Last Admin: 05/26/22 04:04 Dose: Not Given Lamotrigine (Lamotrigine 100 Mg Tablet) 200 mg PO QAM [facility] Lamotrigine (Lamotrigine 100 Mg Tablet) 300 mg PO [facility] Last Admin: 05/25/22 21:35 Dose: 300 mg Magnesium Hydroxide (Magnesium Hydroxide 30 Ml Oral.Susp) 30 ml PO BIDP PRN PRN Reason: Constipation Nicotine (Nicotine 21 Mg Patch) 21 mg TOPICAL DAILY@1000 [facility] Last Admin: 05/25/22 21:06 Dose: 21 mg Ondansetron HCl (Ondansetron 4 Mg/2 Ml Vial) 4 mg IV Q4HP PRN; Protocol PRN Reason: Nausea And Vomiting Polyethylene Glycol (Polyethylene Glycol 3350 17 Gm Packet) 17 gm PO DAILYP PRN PRN Reason: Constipation Prazosin HCl (Prazosin 1 Mg Capsule) 5 mg PO [facility] Last Admin: 05/25/22 21:35 Dose: 5 mg Pregabalin (Pregabalin 150 Mg Capsule) 450 mg PO [facility] Last Admin: 05/25/22 21:34 Dose: 450 mg Pregabalin (Pregabalin 150 Mg Capsule) [facility] [place] Senna (Sennosides 1 Tablet) 2 tab PO [facility] Last Admin: 05/25/22 21:35 Dose: 2 tab Sodium Biphosphate/Sodium Phosphate (Fleets Adult Enema) 1 dose ME Q3-4DAYS PRN PRN Reason: Constipation Sodium Chloride (0.9 % Sodium Chloride 10 Ml Syringe) 10 ml IV Q8 [facility] Last Admin: 05/26/22 07:02 Dose: 10 ml Temazepam (Temazepam 15 Mg Capsule) 15 mg PO HSP PRN PRN Reason: Insomnia Temazepam (Temazepam 15 Mg Capsule) 15 mg PO HSP PRN PRN Reason: Insomnia Throat Lozenges (Benzocaine/Menthol 1 Lozenge) 1 lozenge PO PRN PRN PRN Reason: Sore Throat Impressions Impression: infection and needs to get picc ling A/P Assessment and plan (1) Cellulitis: Plan: antibiotics Status: Acute (2) Cellulitis of hip, right: Status: Acute Comment: picc linge (3) Septic arthritis of hip: Status: Acute Comment: sp surgery and needs picc line Plan dc home tomorrow Sepsis Sepsis Identified: No Time Spent With Patient Time: Total time spent is greater than 50% in coordination of care (as documented) at patient's floor/unit and/or counseling patient: Subsequent: Total time with patient: Less than 25 minutes
[2022-05-26] MEDS ORDERED: VANCOMYCIN PER PHARMACY IV SCH (09:22)
[2022-05-26] MEDS ORDERED: hydrOXYzine 25 MG TABLET PO SCH (09:30)
[2022-05-26] MEDS ORDERED: RIZATRIPTAN 10 MG PO PRN (09:34)
[2022-05-26] MEDS: VANCOMYCIN 1,250 MG in 0.9 % SODIUM CHLORIDE 500 ML IV SCH ×2 (10:48→21:23)
[2022-05-26] MEDS ORDERED: lamoTRIgine 100 MG TABLET PO SCH (21:00)
[2022-05-26] MEDS ORDERED: METOPROLOL SUCCINATE 25 MG TAB.XL.24H PO SCH (21:00)
[2022-05-26] MEDS ORDERED: LAMOTRIGINE 200 MG PO SCH (21:00)
[2022-05-26] MEDS ORDERED: PRAZOSIN 5 MG CAPSULE PO SCH (21:00)
[2022-05-26] MEDS ORDERED: PREGABALIN 150 MG CAPSULE PO SCH (21:00)
[2022-05-26] MEDS ORDERED: ESCITALOPRAM 20 MG TABLET PO SCH (21:00)
[2022-05-26] MEDS: SENNOSIDES 1 TABLET PO SCH (21:25)
[2022-05-26] MEDS: PRAZOSIN 1 MG CAPSULE PO SCH (21:27)
[2022-05-26] MEDS: ESCITALOPRAM 10 MG TABLET PO SCH (21:28)
[2022-05-26] MEDS: DOXYCYCLINE HYCLATE 100 MG TABLET.ORL PO SCH ×3 (21:28→23:55)
[2022-05-27] MEDS: HYDROcodone/APAP 10/325MG TABLET PO PRN ×3 (01:05→09:35)
--- NOTE | 2022-05-27 02:20 | XRay Report ---
CLINICAL INFORMATION: PICC line placement COMPARISON: 03/28/2022 TECHNIQUE: Portable FINDINGS: The heart size, mediastinum and pulmonary vessels are unremarkable. Sternotomy changes noted. Left PICC line is seen near the SVC right atrial junction. The lungs are clear. There are no effusions. The bones and soft tissues are within normal limits. IMPRESSION: No cardiopulmonary disease. PICC line in satisfactory position Interpreted and Authenticated by: Aaron Robles 05/27/22
[2022-05-27] MEDS: 0.9 % SODIUM CHLORIDE 10 ML SYRINGE IV SCH ×2 (05:16→13:07)
[2022-05-27] MEDS: 0.45 % SODIUM CHLORIDE 1,000 ML IV SCH (06:48)
[2022-05-27] MEDS: hydrOXYzine 25 MG TABLET PO SCH (08:21)
[2022-05-27] MEDS: PREGABALIN 150 MG CAPSULE PO SCH (08:21)
[2022-05-27] MEDS: DOCUSATE SODIUM 100 MG CAPSULE PO SCH (08:21)
[2022-05-27] MEDS: lamoTRIgine 100 MG TABLET PO SCH (08:21)
[2022-05-27] MEDS: NICOTINE 21 MG PATCH TOPICAL SCH (08:22)
[2022-05-27] MEDS: DOXYCYCLINE HYCLATE 100 MG TABLET.ORL PO SCH (08:34)
[2022-05-27] MEDS: VANCOMYCIN 1,250 MG in 0.9 % SODIUM CHLORIDE 500 ML IV SCH (10:09)
--- NOTE | 2022-05-27 10:59 | Orthopedic Progress Note ---
SUBJECTIVE Subjective Patient information: Note initiated : 05/27/22 at 10:56 am Service Date, if different from initiated Date: [] Patient: Bunny Doran 61 y/o M admitted on 05/25/22 for Right Posterior Total Hip Arthroplasty Revision. Chief Complaint: [walking well and eating well and tolerating meds] Principal diagnosis: right septic hip Constitutional Vitals: Vital Signs Temp Pulse Resp BP Pulse Ox O2 Del Method O2 Flow Rate 97.7 F 62 18 112/66 100 Room Air 0 05/27/22 08:00 05/27/22 08:00 05/27/22 08:00 05/27/22 08:00 05/27/22 09:47 05/27/22 09:47 05/27/22 09:47 Period Temp Pulse Resp BP Sys/Aguirre Pulse Ox O2 Del Method O2 Flow Rate Last 24 Hr 97.7 F-98.9 F 62-84 16-20 112-131/65-82 92-100 Room Air-Room Air 0-0 Intake and Output 05/26/22 05/27/22 05/27/22 19:59 03:59 11:59 Intake Total 2636 500 800 Output Total 600 255 Balance 2036 500 545 Weight 235 lb 9.6 oz 244 lb 12.8 oz Intake & Output: Intake & Output 05/26/22 05/27/22 05/27/22 19:59 03:59 11:59 Intake Total 2636 500 800 Output Total 600 255 Balance 2036 500 545 Weight 235 lb 9.6 oz 244 lb 12.8 oz Intake: IV 500 500 Vancomycin 1,250 mg In Sodium 500 500 Chloride 0.9% 500 ml @ 333.3 mls/hr IV Q12H [facility] Rx#: [id number] Oral 936 800 IV - Manual Only 1200 Output: Drainage 5 Right Hip JAMES Drain 5 Void Amount 600 250 Other: Meal Lunch Percent of Meal Consumed 100% Feeding Ability Independent Urine Appearance Clear Clear Clear Urine Color Bright Yellow Dark Yellow Yellow Urine Odor Normal Strong Normal General appearance: no acute distress and thin Expanded Lower Extremity Exam Gait: Present antalgic OBJ DATA Labs 05/26/22 05:07 05/24/22 15:28 Labs: Abnormal Lab Results 05/26/22 05/24/22 05/24/22 05:07 15:45 15:28 RBC Hgb Hct 30.3 L MCHC RDW Immature Gran % (Auto) Lymph % (Auto) Lymph # (Auto) BUN 21 H Creatinine 1.3 H Urine Protein 30 A Urine Mucus Few A 05/24/22 15:28 RBC 4.19 L Hgb 10.9 L Hct 35.5 L MCHC 30.7 L RDW 16.2 H Immature Gran % (Auto) 0.6 H Lymph % (Auto) 15.2 L Lymph # (Auto) 0.79 L BUN Creatinine Urine Protein Urine Mucus Meds: Medications Acetaminophen (Acetaminophen 325 Mg Tablet) 650 mg PO Q6HP PRN; Protocol PRN Reason: Per Pain Protocol/Fever > 101 Hydrocodone Bitart/Acetaminophen (Hydrocodone/Apap 10/325mg Tablet) 1 - 2 tab PO Q4HP PRN; Protocol PRN Reason: Per Pain Protocol Last Admin: 05/27/22 09:35 Dose: 2 tab Bisacodyl (Bisacodyl 10 Mg Supp.Rect) 10 mg [place] Q2-3DAYS PRN PRN Reason: Constipation Docusate Sodium (Docusate Sodium 100 Mg Capsule) 100 mg PO BID [facility] Last Admin: 05/27/22 08:21 Dose: 100 mg Doxycycline Hyclate (Doxycycline Hyclate 100 Mg Tablet.Orl) 100 mg PO BID [facility]; Protocol Last Admin: 05/27/22 08:34 Dose: 100 mg Escitalopram Oxalate (Escitalopram 10 Mg Tablet) 10 mg PO HS [facility] Last Admin: 05/26/22 21:28 Dose: 10 mg Hydromorphone HCl (Hydromorphone 1 Mg/Ml Syringe) 0.5 - 2 mg IV Q2HP PRN; Protocol PRN Reason: Per Pain Protocol Last Admin: 05/26/22 01:37 Dose: 1 mg Hydroxyzine HCl (Hydroxyzine 25 Mg Tablet) 50 mg PO HS [facility] Last Admin: 05/26/22 21:24 Dose: 50 mg Hydroxyzine HCl (Hydroxyzine 25 Mg Tablet) 25 mg PO DAILY [facility] Last Admin: 05/27/22 08:21 Dose: 25 mg Sodium Chloride (Sodium Chloride 0.45%) 1,000 mls @ 100 mls/hr IV .Q10H [facility] Last Admin: 05/27/22 06:48 Dose: Not Given Vancomycin HCl 1,250 mg/ (Sodium Chloride) 500 mls @ 333.3 mls/hr IV Q12H [facility] Last Admin: 05/27/22 10:09 Dose: 333.3 mls/hr Lamotrigine (Lamotrigine 100 Mg Tablet) [facility] Last Admin: 05/27/22 08:21 Dose: 200 mg Lamotrigine (Lamotrigine 100 Mg Tablet) 300 mg PO [facility] Last Admin: 05/26/22 21:26 Dose: 300 mg Magnesium Hydroxide (Magnesium Hydroxide 30 Ml Oral.Susp) 30 ml PO BIDP PRN PRN Reason: Constipation Metoprolol Succinate (Metoprolol Succinate 25 Mg Tab.Xl.24h) 25 mg PO QPM [facility] Last Admin: 05/26/22 21:27 Dose: 25 mg Nicotine (Nicotine 21 Mg Patch) 21 mg TOPICAL DAILY@1000 [facility] Last Admin: 05/27/22 08:22 Dose: 21 mg Ondansetron HCl (Ondansetron 4 Mg/2 Ml Vial) 4 mg IV Q4HP PRN; Protocol PRN Reason: Nausea And Vomiting Lurasidone 40 Mg 1 dose PO DAILY@1700 [facility] Last Admin: 05/26/22 16:59 Dose: 1 dose Rizatriptan 10 Mg Tablet, Disintegrating 1 dose PO DAILYP PRN PRN Reason: Migraine Headache Polyethylene Glycol (Polyethylene Glycol 3350 17 Gm Packet) 17 gm PO DAILYP PRN PRN Reason: Constipation Last Admin: 05/27/22 08:22 Dose: 17 gm Prazosin HCl (Prazosin 1 Mg Capsule) 5 mg PO [facility] Last Admin: 05/26/22 21:27 Dose: 5 mg Pregabalin (Pregabalin 150 Mg Capsule) 450 mg PO [facility] Last Admin: 05/26/22 21:27 Dose: 450 mg Pregabalin (Pregabalin 150 Mg Capsule) [facility] Last Admin: 05/27/22 08:21 Dose: 150 mg Senna (Sennosides 1 Tablet) 2 tab PO [facility] Last Admin: 05/26/22 21:25 Dose: 2 tab Sodium Biphosphate/Sodium Phosphate (Fleets Adult Enema) 1 dose [place] Q3-4DAYS PRN PRN Reason: Constipation Sodium Chloride (0.9 % Sodium Chloride 10 Ml Syringe) 10 ml IV Q8 [facility] Last Admin: 05/27/22 05:16 Dose: 10 ml Temazepam (Temazepam 15 Mg Capsule) 15 mg PO HSP PRN PRN Reason: Insomnia Throat Lozenges (Benzocaine/Menthol 1 Lozenge) 1 lozenge PO PRN PRN PRN Reason: Sore Throat Vancomycin HCl (Vancomycin Per Pharmacy) 1 order IV UD [facility]; Protocol A/P Assessment and plan (1) Cellulitis of hip, right: Status: Acute Comment: picc linge Plan dc home for iv antibiotics Sepsis Sepsis Identified: No Narrative Plan of Treatment: dc home Time Spent With Patient Time: Total time spent is greater than 50% in coordination of care (as documented) at patient's floor/unit and/or counseling patient: Subsequent: Total time with patient: Less than 25 minutes
[2022-05-27] MEDS ORDERED: 0.9 % SODIUM CHLORIDE 10 ML SYRINGE IV PRN (12:08)
[2022-05-27] MEDS ORDERED: 0.9 % SODIUM CHLORIDE 10 ML SYRINGE IV SCH (21:00)
--- NOTE | 2022-05-28 08:07 | Operative Note ---
DATE OF OPERATION: 05/25/2022 DATE OF PROCEDURE: 05/25/2022 PREOPERATIVE DIAGNOSIS: Right infected hip. POSTOPERATIVE DIAGNOSIS: Right infected hip. PROCEDURE: Right hip incision and drainage and debridement and revision of the femoral head and liner. SURGEON: Maynor Sharma M.D. BIN PACKER: Dhiraj Rogers PA-C. This providers expertise and technical skill were required throughout the case. The [facility]AL[facility] assisted with preoperative coordination, intraoperative retraction, wound closure, and dressing and splint application, as well as postoperative documentation and care coordination. ANESTHESIA: General LMA anesthesia. COMPLICATIONS: None. TOURNIQUET TIME: None. DRAIN: Drain placed. CULTURES: Purulent material received and two cultures were sent. DISPOSITION: PACU. DESCRIPTION OF PROCEDURE: The patient was brought to the operating room, put to sleep with general LMA anesthesia. Once sterilely prepped and draped, we then made an incision over the right hip in a left lateral position. Quite a bit of fluid was extracted from the subcutaneous and then subfascial layer. The volume of the fluid was approximately 80 mL. I did dissect through the fascial layer down to the posterior capsule of the hip joint. It was uncertain whether it penetrated the layer. After thorough irrigation and removal of the synovial lining of the abscess, we thoroughly washed this area, placed a drain and then opened the capsule. Because the infection was so close to the joint, we proceeded with washing out the joint. We dislocated the hip and then removed the bipolar head, both the poly liner and the femoral head. These were removed from the stem, thoroughly irrigated and then replaced the bipolar head with an 8 mm neck length. This was reduced. We thoroughly irrigated using 2 bottles of IrriSept and then using 9 L of irrigation for thorough irrigation. I closed the capsule with #1 Stratafix, closed the fascial layer with #1 Stratafix and one JAMES 10-Albanian drain. Once done, we thoroughly irrigated and closed the skin with Stratafix and adhesive closure. The patient tolerated this well. There were no complications. Sterile bandage was applied. The patient awoke without difficulty. Cultures were sent from the case. RBH:margi Job ID: [id number] Doc ID: [id number] Maynor Sharma MD
== END 2022-05-27 13:30 | disposition home or self-care (01) | DRG 467 ==
LOC: MEDSUR 05-25 11:42
PROVIDERS: ADMIT Orthopaedic Surgery; ATTEND Orthopaedic Surgery

== ENCOUNTER 2023-04-29 08:29 | Inpatient (IN) ==
[2023-04-25 11:20] LABS: Basophils # (Auto) 0.03 K/mcL (0.00-0.30); Basophils % (Auto) 0.5 % (0.0-2.0); Eosinophils # (Auto) 0.11 K/mcL (0.00-0.70); Eosinophils % (Auto) 1.8 % (0.0-7.0); Hematocrit 40.4 % (40.1-51.0); Hemoglobin 12.9 g/dL (13.7-17.5); Lymphocytes # (Auto) 0.92 K/mcL (1.50-4.80); Lymphocytes % (Auto) 14.9 % (15.5-49.0); Mean Cell Volume 89.2 fL (80.0-100.0); Mean Corpuscular HGB Conc 31.9 g/dL (31.0-36.0); Mean Platelet Volume 9.2 fL (8.8-12.5); Monocytes # (Auto) 0.49 K/mcL (0.10-0.90); Monocytes % (Auto) 7.9 % (1.0-12.0); Neutrophils % (Auto) 74.4 % (38.0-78.0); Platelet Count 421 K/mcL (140-440); RBC 4.53 M/mcL (4.63-6.08); Red Cell Distribution Width 13.5 % (11.5-14.5); WBC 6.2 K/mcL (4.5-11.0)
[2023-04-25 14:05] LABS: Blood Urea Nitrogen 20 mg/dL (6-20); Calcium 9.6 mg/dL (8.6-10.4); Carbon Dioxide 20 mmol/L (22-30); Chloride 98 mmol/L (96-108); Glomerular Filtration Rate 65; Glucose 97 mg/dL (70-105)
[~2023-04-29 08:29] MED LIST changes: -ACETAMINOPHEN 500 MG TABLET PO SCH; -CELECOXIB 200 MG CAPSULE PO SCH; +IPRATROPIUM/ALBUTEROL 3 ML AMPUL.NEB NEB PRN; -PREGABALIN 150 MG CAPSULE PO SCH; +SCOPOLAMINE 1 PATCH PATCH TOPICAL PRN; -ceFAZolin 1 GM VIAL IV SCH; -oxyCODONE 10 MG TAB.ER.12H PO SCH
[2023-04-29 10:52] LABS: Amphetamine Screen,Urine None detected; Barbiturate Screen,Urine None detected; Benzodiazepines Screen,Urine None detected; Cannabinoid Screen,Urine Suspect Positive; Cocaine Screen,Urine None detected; Opiate Screen,Urine None detected; Oxycodone, Urine Screen None detected; Phencyclidine Screen,Urine None detected
[2023-04-29] MEDS: PREGABALIN 75 MG CAPSULE PO SCH (11:09)
[2023-04-29] MEDS: oxyCODONE 10 MG TAB.ER.12H PO SCH (11:09)
[2023-04-29] MEDS: CELECOXIB 200 MG CAPSULE PO SCH (11:09)
[2023-04-29] MEDS: ACETAMINOPHEN 500 MG TABLET PO SCH (11:10)
[2023-04-29] MEDS ORDERED: fentaNYL 100 MCG/2 ML VIAL ONE (12:26)
[2023-04-29] MEDS ORDERED: PROPOFOL 200 MG/20 ML VIAL IV ONE ×2 (12:26→14:11)
[2023-04-29] MEDS ORDERED: ROCURONIUM 10 MG/ML ML IV ONE ×2 (12:26→13:11)
[2023-04-29] MEDS: ceFAZolin 2 GM in DEXTROSE 5% IN WATER 50 ML IV SCH (12:37)
[2023-04-29] MEDS ORDERED: TRANEXAMIC ACID 1,000 MG/10 ML VIAL ONE (13:04)
[2023-04-29] MEDS: VANCOMYCIN 1,500 MG in 0.9 % SODIUM CHLORIDE 500 ML IV SCH (13:08)
[2023-04-29] MEDS ORDERED: PHENYLephrine 1 MG/10 ML SYRINGE (ANEST) ONE (13:27)
[2023-04-29] MEDS ORDERED: IPRATROPIUM/ALBUTEROL 3 ML AMPUL.NEB NEB PRN (13:35)
[2023-04-29] MEDS ORDERED: fentaNYL 100 MCG/2 ML VIAL IV PRN (13:35)
[2023-04-29] MEDS ORDERED: HYDROmorphone 0.5 MG/0.5 ML SYRINGE IV PRN (13:35)
[2023-04-29] MEDS ORDERED: NALOXONE HCL 0.4 MG/ML VIAL IV PRN (13:35)
[2023-04-29] MEDS ORDERED: ONDANSETRON 4 MG/2 ML VIAL IV PRN ×3 (13:35→14:33)
[2023-04-29] MEDS ORDERED: HYDROmorphone 1 MG/ML SYRINGE ONE (13:36)
[2023-04-29] MEDS ORDERED: SUGAMMADEX SODIUM 200 MG/2 ML VIAL IV ONE (14:07)
[2023-04-29] MEDS: VANCOMYCIN 1 GM VIAL TOPICAL SCH (14:09)
[2023-04-29] MEDS: 0.9 % SODIUM CHLORIDE 9 ML, KETOROLAC 30 MG, ROPIVACAINE HCL/PF 49.5 ML, EPINEPHrine 0.... IJ SCH (14:12)
[2023-04-29] MEDS ORDERED: TEMAZEPAM 15 MG CAPSULE PO PRN (14:33)
[2023-04-29] MEDS ORDERED: KETOROLAC 15 MG/ML VIAL IV PRN (14:33)
[2023-04-29] MEDS ORDERED: FLEETS ADULT 1 DOSE ENEMA PR PRN (14:33)
[2023-04-29] MEDS ORDERED: POLYETHYLENE GLYCOL 3350 17 GM PACKET PO PRN (14:33)
[2023-04-29] MEDS ORDERED: MAGNESIUM HYDROXIDE 30 ML ORAL.SUSP PO PRN (14:33)
[2023-04-29] MEDS ORDERED: BISACODYL 10 MG SUPP.RECT PR PRN (14:33)
[2023-04-29] MEDS ORDERED: BENZOCAINE/MENTHOL 1 LOZENGE PO PRN (14:33)
[2023-04-29] MEDS ORDERED: 0.9 % SODIUM CHLORIDE 10 ML SYRINGE IV PRN (14:39)
[2023-04-29] MEDS ORDERED: SUMAtriptan SUCCINATE 6 MG/0.5 ML VIAL SQ PRN (14:47)
[2023-04-29] MEDS: HYDROmorphone 1 MG/ML SYRINGE IV PRN (15:40)
[2023-04-29] MEDS: 0.45 % SODIUM CHLORIDE 1,000 ML IV SCH (15:41)
[2023-04-29] MEDS ORDERED: ACETAMINOPHEN 325 MG TABLET PO PRN (17:00)
[2023-04-29] MEDS: TRANEXAMIC ACID 1,000 MG/10 ML VIAL IV ONE ×2 (17:03→17:04)
[2023-04-29] MEDS: DAPTOmycin 500 MG VIAL IV SCH (17:48)
[2023-04-29] MEDS: HYDROcodone/APAP 10/325MG TABLET PO PRN (17:56)
[2023-04-29] MEDS: LACTATED RINGERS 1,000 ML IV SCH (20:52)
[2023-04-29] MEDS ORDERED: PRAZOSIN 5 MG CAPSULE PO SCH (21:00)
[2023-04-29] MEDS ORDERED: ASPIRIN 81 MG TAB.CHEW PO SCH (21:00)
[2023-04-29] MEDS: hydrOXYzine 25 MG TABLET PO SCH (22:02)
[2023-04-29] MEDS: ASPIRIN 81 MG TAB.CHEW PO SCH (22:02)
[2023-04-29] MEDS: DOCUSATE SODIUM 100 MG CAPSULE PO SCH (22:02)
[2023-04-29] MEDS: lamoTRIgine 100 MG TABLET PO SCH (22:02)
[2023-04-29] MEDS: METOPROLOL SUCCINATE 25 MG TAB.XL.24H PO SCH (22:03)
[2023-04-29] MEDS: SULFAMETHOXAZOLE/TRIMETHOPRIM 1 TABLET PO SCH (22:03)
[2023-04-29] MEDS: SENNOSIDES 1 TABLET PO SCH (22:03)
[2023-04-29] MEDS: 0.9 % SODIUM CHLORIDE 10 ML SYRINGE IV SCH ×2 (22:04)
[2023-04-29] MEDS: PRAZOSIN 1 MG CAPSULE PO SCH (23:41)
[2023-04-30 06:46] LABS: Creatine Kinase 131 U/L (24-195)
== END 2023-04-30 12:00 | disposition home or self-care (01) | DRG 467 ==
LOC: MEDSUR 08:29
PROVIDERS: ADMIT Orthopaedic Surgery; ATTEND Orthopaedic Surgery

== ENCOUNTER 2023-07-15 12:10 | Inpatient (IN) ==
[2023-07-15] MEDS: 0.9 % SODIUM CHLORIDE 1,000 ML IV ONE (14:09)
[2023-07-15 14:15] LABS: Basophils # (Auto) 0.03 K/mcL (0.00-0.30); Basophils % (Auto) 0.6 % (0.0-2.0); Eosinophils # (Auto) 0.16 K/mcL (0.00-0.70); Eosinophils % (Auto) 3.2 % (0.0-7.0); Hematocrit 39.1 % (40.1-51.0); Hemoglobin 12.7 g/dL (13.7-17.5); Lymphocytes # (Auto) 0.73 K/mcL (1.50-4.80); Lymphocytes % (Auto) 14.8 % (15.5-49.0); Mean Cell Volume 87.7 fL (80.0-100.0); Mean Corpuscular HGB Conc 32.5 g/dL (31.0-36.0); Mean Platelet Volume 9.9 fL (8.8-12.5); Monocytes # (Auto) 0.41 K/mcL (0.10-0.90); Monocytes % (Auto) 8.3 % (1.0-12.0); Neutrophils % (Auto) 72.7 % (38.0-78.0); Platelet Count 269 K/mcL (140-440); RBC 4.46 M/mcL (4.63-6.08); Red Cell Distribution Width 13.8 % (11.5-14.5); WBC 4.9 K/mcL (4.5-11.0)
[2023-07-15 14:26] LABS: ALT/SGPT 13 U/L (<40); AST/SGOT 19 U/L (<40); Albumin 3.8 gm/dL (3.2-5.2); Albumin/Globulin Ratio 1.1 (1.0-2.3); Alkaline Phosphatase 99 U/L (39-117); Bilirubin,Total 0.2 mg/dL (0.1-1.0); Blood Urea Nitrogen 16 mg/dL (6-20); C-Reactive Protein 5.85 mg/dL (0.03-0.80); Calcium 9.7 mg/dL (8.6-10.4); Carbon Dioxide 23 mmol/L (22-30); Chloride 104 mmol/L (96-108); Globulin 3.5 gm/dL (2.2-3.7); Glomerular Filtration Rate 72; Glucose 107 mg/dL (70-105)
[2023-07-15 14:36] LABS: Prothrombin Time 13.7 sec (11.9-14.5)
[2023-07-15] MEDS ORDERED: BENZOCAINE/MENTHOL 1 LOZENGE PO PRN (14:40)
[2023-07-15] MEDS ORDERED: FLEETS ADULT 1 DOSE ENEMA PR PRN (14:40)
[2023-07-15] MEDS ORDERED: TEMAZEPAM 15 MG CAPSULE PO PRN (14:40)
[2023-07-15] MEDS ORDERED: BISACODYL 10 MG SUPP.RECT PR PRN (14:40)
[2023-07-15] MEDS ORDERED: VANCOMYCIN PER PHARMACY IV SCH (15:15)
[2023-07-15] MEDS: VANCOMYCIN 2,000 MG in 0.9 % SODIUM CHLORIDE 500 ML IV SCH (15:15)
[2023-07-15] MEDS: 0.45 % SODIUM CHLORIDE 1,000 ML IV SCH (16:13)
[2023-07-15 16:21] LABS: Amphetamine Screen,Urine Suspect positive; Barbiturate Screen,Urine None detected; Benzodiazepines Screen,Urine None detected; Cannabinoid Screen,Urine Suspect Positive; Cocaine Screen,Urine None detected; Opiate Screen,Urine None detected; Oxycodone, Urine Screen None detected; Phencyclidine Screen,Urine None detected
[2023-07-15] MEDS: VANCOMYCIN 1,500 MG in 0.9 % SODIUM CHLORIDE 500 ML IV SCH (16:38)
[2023-07-15] MEDS: KETOROLAC 15 MG/ML VIAL IV PRN (17:24)
[2023-07-15] MEDS: ACETAMINOPHEN 325 MG TABLET PO PRN (17:25)
[2023-07-15] MEDS: HYDROcodone/APAP 10/325MG TABLET PO PRN (19:57)
[2023-07-15] MEDS: DOCUSATE SODIUM 100 MG CAPSULE PO SCH (21:12)
[2023-07-15] MEDS: SENNOSIDES 1 TABLET PO SCH (21:12)
[2023-07-15] MEDS: ASPIRIN 81 MG TAB.CHEW CHEWED SCH (21:12)
[2023-07-15] MEDS: NICOTINE 21 MG PATCH TOPICAL ONE (21:12)
[2023-07-15] MEDS: 0.9 % SODIUM CHLORIDE 10 ML SYRINGE IV SCH (21:13)
[2023-07-15] MEDS ORDERED: 0.9 % SODIUM CHLORIDE 10 ML SYRINGE IV SCH (22:00)
[2023-07-15] MEDS: HYDROmorphone 1 MG/ML SYRINGE IV PRN (23:41)
[2023-07-16] MEDS: ONDANSETRON 4 MG/2 ML VIAL IV PRN (08:42)
[2023-07-16 17:34] LABS: Amphetamine Screen,Urine Suspect positive; Barbiturate Screen,Urine None detected; Benzodiazepines Screen,Urine None detected; Cannabinoid Screen,Urine Suspect Positive; Cocaine Screen,Urine None detected; Opiate Screen,Urine Suspect Positive; Oxycodone, Urine Screen None detected; Phencyclidine Screen,Urine None detected
[2023-07-17 10:19] LABS: Amphetamine Screen,Urine Suspect positive; Barbiturate Screen,Urine None detected; Benzodiazepines Screen,Urine None detected; Cannabinoid Screen,Urine Suspect Positive; Cocaine Screen,Urine None detected; Opiate Screen,Urine Suspect Positive; Oxycodone, Urine Screen None detected; Phencyclidine Screen,Urine None detected
[2023-07-17] MEDS: MAGNESIUM HYDROXIDE 30 ML ORAL.SUSP PO PRN (11:47)
[2023-07-17] MEDS: ceFAZolin 1 GM VIAL IV SCH (16:45)
[2023-07-17] MEDS: TEMAZEPAM 15 MG CAPSULE PO PRN (20:22)
[2023-07-19 12:47] LABS: Amphetamine Screen,Urine Suspect positive; Barbiturate Screen,Urine None detected; Benzodiazepines Screen,Urine None detected; Cannabinoid Screen,Urine Suspect Positive; Cocaine Screen,Urine None detected; Opiate Screen,Urine Suspect Positive; Oxycodone, Urine Screen None detected; Phencyclidine Screen,Urine None detected
[2023-07-19] MEDS ORDERED: SCOPOLAMINE 1 PATCH PATCH TOPICAL PRN (13:00)
[2023-07-20 09:29] LABS: Amphetamine Screen,Urine Suspect positive; Barbiturate Screen,Urine None detected; Benzodiazepines Screen,Urine None detected; Cannabinoid Screen,Urine Suspect Positive; Cocaine Screen,Urine None detected; Opiate Screen,Urine Suspect Positive; Oxycodone, Urine Screen None detected; Phencyclidine Screen,Urine None detected
[2023-07-20] MEDS: NICOTINE 21 MG PATCH TOPICAL SCH (14:10)
[2023-07-21] MEDS ORDERED: NICOTINE 21 MG PATCH TOPICAL SCH (10:00)
[2023-07-21 10:53] LABS: Amphetamine Screen,Urine None detected; Barbiturate Screen,Urine None detected; Benzodiazepines Screen,Urine None detected; Cannabinoid Screen,Urine Suspect Positive; Cocaine Screen,Urine None detected; Opiate Screen,Urine Suspect Positive; Oxycodone, Urine Screen None detected; Phencyclidine Screen,Urine None detected
[2023-07-21 16:08] LABS: Amphetamine Screen Positive
[2023-07-21] MEDS: POLYETHYLENE GLYCOL 3350 17 GM PACKET PO PRN (16:40)
[2023-07-22 16:08] LABS: Amphetamine Screen Negative (Cutoff=500)
[2023-07-22] MEDS ORDERED: PROPOFOL 200 MG/20 ML VIAL IV ONE ×2 (16:25→18:50)
[2023-07-22] MEDS ORDERED: ROCURONIUM 10 MG/ML ML IV ONE ×3 (16:26→18:18)
[2023-07-22] MEDS ORDERED: TRANEXAMIC ACID 1,000 MG/10 ML VIAL ONE ×2 (16:30→20:22)
[2023-07-22] MEDS ORDERED: fentaNYL 100 MCG/2 ML VIAL ONE (16:30)
[2023-07-22] MEDS ORDERED: KETAMINE 50 MG/ML Syringe IV ONE (16:31)
[2023-07-22] MEDS ORDERED: ceFAZolin 1 GM VIAL ONE (16:33)
[2023-07-22] MEDS: ceFAZolin 1 GM VIAL IV ONE (16:43)
[2023-07-22] MEDS ORDERED: GLYCOPYRROLATE 0.2 MG/ML VIAL IV ONE ×2 (16:50→17:49)
[2023-07-22] MEDS ORDERED: DEXAMETHASONE 10 MG/ML VIAL ONE (16:50)
[2023-07-22] MEDS ORDERED: PHENYLephrine 1 MG/10 ML SYRINGE (ANEST) ONE (17:14)
[2023-07-22] MEDS ORDERED: PHENYLEPHRINE 10 MG/ML VIAL ONE (17:45)
[2023-07-22] MEDS ORDERED: SUGAMMADEX SODIUM 200 MG/2 ML VIAL IV ONE (17:47)
[2023-07-22] MEDS ORDERED: VASOPRESSIN 20 UNIT/ML VIAL ONE (18:36)
[2023-07-22] MEDS ORDERED: HYDROmorphone 1 MG/ML SYRINGE ONE (18:47)
[2023-07-22] MEDS ORDERED: IPRATROPIUM/ALBUTEROL 3 ML AMPUL.NEB NEB PRN (19:21)
[2023-07-22] MEDS ORDERED: HYDROmorphone 1 MG/ML SYRINGE IV PRN (19:30)
[2023-07-22] MEDS ORDERED: TEMAZEPAM 15 MG CAPSULE PO PRN (19:30)
[2023-07-22] MEDS ORDERED: BENZOCAINE/MENTHOL 1 LOZENGE PO PRN (19:30)
[2023-07-22] MEDS: VANCOMYCIN 1 GM VIAL TOPICAL SCH (19:52)
[2023-07-22] MEDS: fentaNYL 100 MCG/2 ML VIAL IV ONE (19:56)
[2023-07-22] MEDS: TRANEXAMIC ACID 1,000 MG/10 ML VIAL IV ONE (20:22)
[2023-07-22] MEDS: LACTATED RINGERS 1,000 ML IV SCH (20:45)
[2023-07-22] MEDS: VANCOMYCIN 1,500 MG in 0.9 % SODIUM CHLORIDE 500 ML IV ONE (20:55)
[2023-07-22] MEDS: fentaNYL 100 MCG/2 ML VIAL ONE (20:56)
[2023-07-22] MEDS: HYDROmorphone 0.5 MG/0.5 ML SYRINGE IV ONE (20:56)
[2023-07-22] MEDS: 0.45 % SODIUM CHLORIDE 1,000 ML IV SCH (20:56)
[2023-07-22] MEDS: KETOROLAC 15 MG/ML VIAL IV PRN (20:58)
[2023-07-22] MEDS ORDERED: DOCUSATE SODIUM 100 MG CAPSULE PO SCH (21:00)
[2023-07-22] MEDS: 0.9 % SODIUM CHLORIDE 10 ML SYRINGE IV SCH (21:47)
[2023-07-22] MEDS: PANTOPRAZOLE 40 MG VIAL IV ONE ×2 (22:26)
[2023-07-23] MEDS: ceFAZolin 1 GM VIAL IV SCH (00:48)
[2023-07-23] MEDS: PANTOPRAZOLE 40 MG VIAL IV SCH (07:48)
[2023-07-23 09:17] LABS: Amphetamine Screen Positive
[2023-07-23 15:08] LABS: Opiate Screen Positive ng/mL (Cutoff=300)
[2023-07-24] MEDS: 0.9 % SODIUM CHLORIDE 10 ML SYRINGE IV SCH (09:53)
[2023-07-24 13:11] LABS: Opiate Screen Positive ng/mL (Cutoff=300)
[2023-07-24 13:43] VITALS: O2SAT 100
[2023-07-24 18:33] VITALS: TEMP 99
[2023-07-25 08:11] LABS: Opiate Screen Positive ng/mL (Cutoff=300)
[2023-07-25 08:11] LABS: Amphetamine Screen Positive
[2023-07-25 13:11] LABS: Opiate Screen Positive ng/mL (Cutoff=300)
== END 2023-07-24 18:45 | disposition home or self-care (01) | DRG 467 ==
LOC: ED 12:10 → MEDSUR 15:25
PROVIDERS: ADMIT Physician Assistant Medical; ATTEND Orthopaedic Surgery